=== PATIENT | male | born 1985 | race Two or more races ===

== ENCOUNTER 2017-05-11 19:48 | Emergency (ER) | payer OTHER ==
[~2017-05-11] VITALS: Ht 180.3 cm; Wt 91.6 kg
[~2017-05-11 19:48] MED LIST: ACET325T9 PO
[2017-05-11] MEDS ORDERED: cloNIDine HCL 0.1 MG TABLET ONE (20:12)
[2017-05-11] MEDS ORDERED: cloNIDine HCL 0.1 MG TABLET PO ONE (20:15)
--- NOTE | 2017-05-11 20:49 | RAD ---
CT HEAD WO CONTRAST History: Headache, dizziness, elevated blood pressure Comparison: None. Technique: Noncontrast CT imaging was performed of the head. Exposure: One or more of the following individualized dose reduction techniques were utilized for this examination: 1. Automated exposure control 2. Adjustment of the mA and/or kV according to patient size 3. Use of iterative reconstruction technique. Findings: No acute extra-axial or parenchymal hemorrhage is identified. There is no significant intra-axial mass effect, midline shift, or extra-axial fluid collection. The wilder-white differentiation of the major vascular territories is preserved. The ventricles, sulci, and cisterns are within normal limits in size and configuration. The mastoid air cells and the visualized paranasal sinuses are aerated. No acute calvarial abnormality is identified. Impression: 1. No acute intracranial abnormality is identified. Electronically signed by: Jimi Weinberg MD (05/11/2017 8:46 PM) [facility]
[2017-05-11] MEDS ORDERED: CONTRAST GIVEN MC PRN (21:00)
[2017-05-11] MEDS ORDERED: IOHEXOL 300 MG/ML 75 ML VIAL. IV ONE (21:00)
[2017-05-11 21:10] LABS: BASO % 1 % (0-3); EOS # 0.1 x10^3/uL (0.0-0.7); EOS % 2 % (0-3); HEMATOCRIT 43.1 % (39.0-53.0); HEMOGLOBIN 14.8 g/dL (13.0-17.5); LYMPH % 27 % (24-48); MEAN CORPUSCULAR HEMOGLOBIN 29 pg (25-35); MEAN CORPUSCULAR HGB CONC 34 g/dL (31-37); MEAN CORPUSCULAR VOLUME 83 fL (79-100); MONO # 0.6 x10^3/uL (0.0-1.1); MONO % 8 % (0-9); NEUT # 4.7 x10^3uL (1.8-7.7); NEUT % 62 % (31-73); PLATELET COUNT 198 x10^3/uL (140-400); RED BLOOD COUNT 5.17 x10^6/uL (4.30-5.70); RED CELL DISTRIBUTION WIDTH 13.9 % (11.5-14.5); WHITE BLOOD COUNT 7.5 x10^3/uL (4.0-11.0)
[2017-05-11 21:16] LABS: ALBUMIN 4.1 g/dL (3.4-5.0); ALBUMIN/GLOBULIN RATIO 1.1 (1.0-1.7); CALCIUM 9.2 mg/dL (8.5-10.1); CREATININE 1.4 mg/dL (0.7-1.3); POTASSIUM 3.5 mmol/L (3.5-5.1); TOTAL BILIRUBIN 0.4 mg/dL (0.2-1.0)
[2017-05-11] MEDS ORDERED: hydroCHLOROthiazide 25 MG TABLET PO ONE (21:30)
--- NOTE | 2017-05-11 21:32 | RAD ---
PQRS Compliance Statement: One or more of the following individualized dose reduction techniques were utilized for this examination: 1. Automated exposure control 2. Adjustment of the mA and/or kV according to patient size 3. Use of iterative reconstruction technique CT angiography head with contrast May 11, 2017 INDICATION: Headache. Dizziness. COMPARISON: CT head May 11, 2017 TECHNIQUE: Multiple axial CT images of the head were obtained after the intravenous administration of 75 cc Omnipaque 300. Coronal and sagittal reformats are provided. Maximum intensity projection images of the [place] are provided. FINDINGS: Ventricles, sulci and basal cisterns are within normal limits. There is no hydrocephalus. Mckeon-white matter differentiation is normal. There is no acute intracranial hemorrhage. There is no mass, mass effect or midline shift. Posterior fossa is normal in appearance. No enhancing lesion is identified. Visualized portions of the orbits are normal. Paranasal sinuses are well aerated. Mastoid air cells are well aerated. Scalp and calvaria are normal. Vascular findings: Carotid bifurcations are normal without evidence for stenosis of the proximal internal carotid arteries. Intracranial segments of internal carotid arteries are normal in course and caliber. Middle cerebral arteries are normal in course and caliber. Patent sylvian branches are noted bilaterally. Bilateral A1 segments of anterior cerebral arteries are present. Anterior communicating artery is visualized. Anterior cerebral arteries are normal in course and caliber. Right vertebral artery is dominant. Basilar artery is normal in course and caliber. Bilateral P1 segments of the posterior cerebral arteries are present. Superior cerebellar arteries are normal in course and caliber. Anterior inferior cerebellar arteries are normal. Posterior inferior cerebellar arteries are normal. There is no aneurysm, vascular malformation or high-grade stenosis/large vessel occlusion. IMPRESSION: No acute intracranial hemorrhage. There is no aneurysm, vascular malformation or high-grade stenosis/large vessel occlusion involving [place] of [place]. Electronically signed by: Viri Sol MD (05/11/2017 9:29 PM) [id number]
[2017-05-11] MEDS ORDERED: LOSARTAN 25 MG TABLET. PO ONE (21:45)
[2017-05-11] MEDS ORDERED: VALS1TAB3 PO (22:24)
--- NOTE | 2017-05-11 22:24 | PHYS DOC ---
Past History Past Medical History: Hypertension, Migraines Past Surgical History: No Surgical History Alcohol Use: None Drug Use: None Adult General Chief Complaint Chief Complaint: HYPERTENSION HPI HPI 32-year-old male with a history of chronic noncompliance with hypertension which he has been aware of for more than 6 years, pulse with a history of migraines, now with gradual onset of headache typical for him midday today. Patient denies fevers chills sweats or shaking chills. He has no stiff neck. He was concerned that his blood pressure might be elevated so he went to the clinic and had taken. It was indeed elevated and they referred him to the emergency department for evaluation. Patient denies visual changes, chest pain, shortness breath, or any difficulties with strength sensation or gait. Review of Systems Review of Systems Constitutional: Denies fever or chills [] Eyes: Denies change in visual acuity, redness, or eye pain [] HENT: Denies nasal congestion or sore throat [] Respiratory: Denies cough or shortness of breath [] Cardiovascular: No additional information not addressed in HPI [] GI: Denies abdominal pain, nausea, vomiting, bloody stools or diarrhea [] : Denies dysuria or hematuria [] Musculoskeletal: Denies back pain or joint pain [] Integument: Denies rash or skin lesions [] Neurologic: Denies headache, focal weakness or sensory changes [] Endocrine: Denies polyuria or polydipsia [] All other systems were reviewed and found to be within normal limits, except as documented in this note. Current Medications Current Medications Current Medications Medications (Trade) Dose Ordered Sig/Dung Start Time Stop Time Status Last Admin Dose Admin Clonidine HCl (Catapres) 0.2 mg 1X ONCE 05/11/17 20:15 05/11/17 20:16 DC 05/11/17 20:15 0.2 MG Hydrochlorothiazide (Hydrodiuril) 25 mg 1X ONCE 05/11/17 21:30 05/11/17 21:31 DC 05/11/17 21:34 25 MG Info (Do NOT chart on this entry -- for MONITORING) 1 each PRN DAILY PRN 05/11/17 21:00 05/13/17 20:59 Iohexol (Omnipaque 300 Mg/ml) 75 ml 1X ONCE 05/11/17 21:00 05/11/17 21:01 DC 05/11/17 20:55 75 ML Losartan Potassium (Cozaar) 25 mg ONCE ONCE 05/11/17 21:45 05/11/17 21:46 DC 05/11/17 21:40 25 MG Allergies Allergies Allergies Coded Allergies Type Severity Reaction Last Updated Verified No Known Drug Allergies 01/11/14 No Physical Exam Physical Exam Well-appearing patient perfectly groomed supple neck clear lungs regular rate and rhythm no tachycardia clear lungs with no Rales benign abdomen normal extremities and a nonfocal neurologic exam. Patient has no meningismus whatsoever Constitutional: Well developed, well nourished, no acute distress, non-toxic appearance. [] HENT: Normocephalic, atraumatic, bilateral external ears normal, oropharynx moist, no oral exudates, nose normal. [] Eyes: PERRLA, EOMI, conjunctiva normal, no discharge. [] Neck: Normal range of motion, no tenderness, supple, no stridor. [] Cardiovascular:Heart rate regular rhythm, no murmur [] Lungs & Thorax: Bilateral breath sounds clear to auscultation [] Abdomen: Bowel sounds normal, soft, no tenderness, no masses, no pulsatile masses. [] Skin: Warm, dry, no erythema, no rash. [] Back: No tenderness, no CVA tenderness. [] Extremities: No tenderness, no cyanosis, no clubbing, ROM intact, no edema. [] Neurologic: Alert and oriented X 3, normal motor function, normal sensory function, no focal deficits noted. [] Psychologic: Affect normal, judgement normal, mood normal. [] Current Patient Data Vital Signs Vital Signs Date Time Temp Pulse Resp B/P (MAP) Pulse Ox O2 Delivery O2 Flow Rate FiO2 05/11/17 21:40 80 210/120 05/11/17 21:15 16 Room Air 05/11/17 20:19 97.6 100 Lab Results Laboratory Tests Test 05/11/17 20:45 White Blood Count 7.5 x10^3/uL (4.0-11.0) Red Blood Count 5.17 x10^6/uL (4.30-5.70) Hemoglobin 14.8 g/dL (13.0-17.5) Hematocrit 43.1 % (39.0-53.0) Mean Corpuscular Volume 83 fL (79-100) Mean Corpuscular Hemoglobin 29 pg (25-35) Mean Corpuscular Hemoglobin Concent 34 g/dL (31-37) Red Cell Distribution Width 13.9 % (11.5-14.5) Platelet Count 198 x10^3/uL (140-400) Neutrophils (%) (Auto) 62 % (31-73) Lymphocytes (%) (Auto) 27 % (24-48) Monocytes (%) (Auto) 8 % (0-9) Eosinophils (%) (Auto) 2 % (0-3) Basophils (%) (Auto) 1 % (0-3) Neutrophils # (Auto) 4.7 x10^3uL (1.8-7.7) Lymphocytes # (Auto) 2.0 x10^3/uL (1.0-4.8) Monocytes # (Auto) 0.6 x10^3/uL (0.0-1.1) Eosinophils # (Auto) 0.1 x10^3/uL (0.0-0.7) Basophils # (Auto) 0.0 x10^3/uL (0.0-0.2) Sodium Level 140 mmol/L (136-145) Potassium Level 3.5 mmol/L (3.5-5.1) Chloride Level 103 mmol/L (98-107) Carbon Dioxide Level 28 mmol/L (21-32) Anion Gap 9 (6-14) Blood Urea Nitrogen 11 mg/dL (8-26) Creatinine 1.4 mg/dL (0.7-1.3) H Estimated GFR (Cockcroft-Gault) 58.0 BUN/Creatinine Ratio 8 (6-20) Glucose Level 118 mg/dL (70-99) H Calcium Level 9.2 mg/dL (8.5-10.1) Total Bilirubin 0.4 mg/dL (0.2-1.0) Aspartate Amino Transferase (AST) 17 U/L (15-37) Alanine Aminotransferase (ALT) 27 U/L (16-63) Alkaline Phosphatase 54 U/L (46-116) Troponin I Quantitative < 0.017 ng/mL (0-0.055) Total Protein 8.0 g/dL (6.4-8.2) Albumin 4.1 g/dL (3.4-5.0) Albumin/Globulin Ratio 1.1 (1.0-1.7) EKG EKG [] Radiology/Procedures Radiology/Procedures Chest x-ray normal study no acute disease interpreted by me Course & Med Decision Making Course & Med Decision Making Pertinent Labs and Imaging studies reviewed. (See chart for details) Patient with chronic noncompliance and poorly controlled hypertension. He is comfortable and well-appearing on M.D. evaluation. Patient's headache gradually resolved while in ED. He has nonfocal neurologic exam and no evidence of acute coronary syndrome. Troponin negative. Patient has mild renal insufficiency with creatinine 1.4. Patient stable and well-appearing on multiple reevaluation. Blood pressure improved to 176/108. No evidence of acute end organ injury. Headache resolved on reevaluation prior to discharge. Prescription for valsartan hydrochlorothiazide dispensed. Patient were critical importance of compliance with this medication regimen and close follow-up with his primary care doctor for reevaluation and to determine efficacy and make medication and dose adjustments as needed. No further workup or treatment indicated at this time patient agrees with outpatient follow-up and strict return precautions given [] Dragon Disclaimer Dragon Disclaimer This electronic medical record was generated, in whole or in part, using a voice recognition dictation system. Departure Departure: Impression: Primary Impression: Hypertension Additional Impressions: Noncompliance with medication regimen Mild renal insufficiency Disposition: 01 HOME, SELF-CARE Condition: IMPROVED Referrals: PCPVANGIE (PCP) Patient Instructions: Chronic Renal Insufficiency, Hypertension Additional Instructions: As you been aware for 6 years you have high blood pressure which requires medication. Since you have not taken medication during that time, your blood pressure has been uncontrolled. It appears that uncontrolled hypertension caused you to experience a headache today. The CAT scan of your head shows no signs of an emergency as a result in your symptoms are now resolved after treatment. Your labs reflect mild renal insufficiency which means less than perfect kidney function. This is a common result of poorly controlled chronic hypertension. It's critically important that you take the prescription that you' ve been given to control your blood pressure. Failure to do so will result in long-term changes including but not limited to diagnoses such as atherosclerosis , chronic kidney failure, congestive heart failure, heart attack or stroke. All of these can result in premature or permanent disability. Take this medication as prescribed and follow-up with your doctor tomorrow for recheck. Keep record of your blood pressure once a day to report back to your doctor in order to address medication changes or dose adjustment as needed for optimal control. Return immediately for new severe worsening symptoms Scripts Valsartan/Hydrochlorothiazide (DIOVAN HCT 80-12.5 MG TABLET) 1 Each Tablet 1 TAB PO DAILY, #30 TAB 5 Refills Prov: ANDREA VELAZCO MD 05/11/17 Problem Qualifiers ANDREA VELAZCO MD May 11, 2017 22:24
[2017-05-11 22:30] VITALS: BP 176/108
--- NOTE | 2017-05-12 08:20 | RAD ---
Portable chest, 05/11/2017: History: Hypertension The heart size and pulmonary vascularity are normal. The lungs are clear. There is no evidence of pleural fluid. IMPRESSION: No acute cardiopulmonary abnormality is detected.
== END 2017-05-11 22:34 | disposition home or self-care (01) ==
LOC: ER 19:48
DX: I10 Essential (primary) hypertension (principal); N28.9 Disorder of kidney and ureter, unspecified; Z91.14 Patient's other noncompliance with medication regimen; G43.909 Migraine, unspecified, not intractable, without status migrainosus
CPT/HCPCS: 36415; 70450; 70496; 71045; 80053; 84484; 85025; 99285; Q9967

== ENCOUNTER 2018-07-28 12:25 | Inpatient (IN) | payer OTHER ==
[~2018-07-28] VITALS: Ht 180.3 cm; Wt 93.2 kg
[2018-07-28] VITALS (12 sets, daily range): BP systolic 134–217; BP diastolic 75–137
[~2018-07-28 12:25] MED LIST changes: +VALS1TAB3 PO
--- NOTE | 2018-07-28 12:55 | NUR ---
Admit to room icu bed 6 via ambulation from physicians office. Alert and oriented, no c/o pain. Blood pressure 217/137, heart rate 86, afebrile. Started saline lock, 20 gauge, to left forearm with rainbow blood draw. Urine also obtained. Pt said he had a headache yesterday but today feels fine. Oriented to room and explained all procedures.
[2018-07-28] MEDS ORDERED: METOPROLOL TARTRATE 5 MG/5 ML VIAL. IV ONE (14:00)
[2018-07-28 14:12] LABS: BASO % 1 % (0-3); EOS # 0.2 x10^3/uL (0.0-0.7); EOS % 4 % (0-3); HEMATOCRIT 43.7 % (39.0-53.0); HEMOGLOBIN 14.8 g/dL (13.0-17.5); LYMPH # 1.8 x10^3/uL (1.0-4.8); LYMPH % 31 % (24-48); MEAN CORPUSCULAR HEMOGLOBIN 28 pg (25-35); MEAN CORPUSCULAR HGB CONC 34 g/dL (31-37); MEAN CORPUSCULAR VOLUME 83 fL (79-100); MONO # 0.4 x10^3/uL (0.0-1.1); MONO % 7 % (0-9); NEUT # 3.4 x10^3uL (1.8-7.7); NEUT % 58 % (31-73); PLATELET COUNT 199 x10^3/uL (140-400); RED BLOOD COUNT 5.27 x10^6/uL (4.30-5.70); WHITE BLOOD COUNT 5.9 x10^3/uL (4.0-11.0)
[2018-07-28 14:22] LABS: ALBUMIN 3.9 g/dL (3.4-5.0); ALBUMIN/GLOBULIN RATIO 1.1 (1.0-1.7); CREATININE 1.5 mg/dL (0.7-1.3); GFR 53.3; POTASSIUM 3.5 mmol/L (3.5-5.1); TOTAL BILIRUBIN 0.5 mg/dL (0.2-1.0); TOTAL PROTEIN 7.4 g/dL (6.4-8.2)
[2018-07-28 14:23] LABS: BILIRUBIN,URINE NEG (NEG); CLARITY,URINE CLEAR; COLOR,URINE YELLOW; GLUCOSE,URINE NEG (NEG); NITRITE,URINE NEG (NEG); UROBILINOGEN,URINE 0.2 mg/dL (0.2 mg/dL)
[2018-07-28 14:24] LABS: BACTERIA,URINE 0 /HPF (0-FEW); RBC,URINE RARE /HPF (0-2); SQUAMOUS EPITHELIAL CELL,UR OCC /LPF; WBC,URINE RARE /HPF (0-4)
[2018-07-28] MEDS: ACETAMINOPHEN 325 MG TABLET PO PRN ×2 (17:12→22:10)
[2018-07-29] VITALS (27 sets, daily range): BP systolic 119–173; BP diastolic 78–122
--- NOTE | 2018-07-29 05:31 | EKG ---
[address] [address] Test Date: 2018-07-28 Test Time: 19:49:26 Pat Name: MELANIE DAWSON Department: Room: [facility]06 1 Gender: M Predictive Maintenance Specialist: : [id number] Requested By: AISHA PORTILLO Order Number: [id number] Reading MD: Measurements Intervals [place] Rate: 88 P: 34 NM: 160 QRS: 27 QRSD: 110 T: -31 QT: 380 QTc: 463 Interpretive Statements SINUS RHYTHM T ABNORMALITY IN INFEROLATERAL LEADS ABNORMAL ECG RI6.02 No previous ECG available for comparison
[2018-07-29] MEDS: hydroCHLOROthiazide 12.5 MG CAPSULE PO SCH (08:44)
[2018-07-29] MEDS ORDERED: LOSARTAN 50 MG TABLET. PO SCH (09:00)
[2018-07-29] MEDS ORDERED: METOPROLOL SUCC 24HR ER 50 MG TAB.ER.24H. PO SCH (13:15)
[2018-07-29] MEDS: LOSARTAN 50 MG TABLET. PO SCH (13:33)
[2018-07-29 14:05] LABS: THYROID STIM HORMONE (TSH) 1.956 uIU/mL (0.358-3.740)
[2018-07-29] MEDS ORDERED: FUROSEMIDE 20 MG/2 ML VIAL IVP ONE (16:00)
[2018-07-29] MEDS ORDERED: NITROGLYCERIN 0.2MG/HR PATCH. TD SCH (17:30)
[2018-07-30] VITALS (14 sets, daily range): BP systolic 123–162; BP diastolic 83–116
--- NOTE | 2018-07-30 08:00 | PDOC2 ---
CARDIAC CONSULT DATE OF CONSULT Date Of Consult DATE: 07/30/18 TIME: 07:58 REASON FOR CONSULT Reason for Consult Hypertension REFERRING PHYSICIAN Referring Physician Dr. Dale SOURCE Source: Chart review, Patient HPI History of Present Illness This is a 33 yo male, with a history of hypertension, who presented secondary to elevated blood pressure. Patient had ran out of his medications about a month prior. Was a PCP office for routine visit so he could get medications refilled. Blood pressure noted to be significantly elevated and was referred to the hospital. Cardene gtt was initiated. Blood pressure now better controlled. No h/o CAD. Patient reports an enlarged heart at age 13. PAST MEDICAL HISTORY Cardiovascular: HTN PAST SURGICAL HISTORY Past Surgical History: No pertinent history FAMILY HISTORY Family History: Other (no pertinent for mother's side. Does not know father) SOCIAL HISTORY Smoke: No ALCOHOL: none Drugs: None Lives: Alone CURRENT MEDICATIONS Current Medications Current Medications Acetaminophen (Tylenol) 650 mg PRN QID PRN PO PAIN Last administered on 07/28/18 22:10; Start 07/28/18 at 13:30 Losartan Potassium (Cozaar) 50 mg DAILY PO Last administered on 07/29/18at 08:44; Start 07/29/18 at 09:00; Stop 07/29/18 at 13:12; Status DC Hydrochlorothiazide (Microzide) 12.5 mg DAILY PO Last administered on 07/29/18 08:44; Start 07/29/18 at 09:00 Nicardipine HCl 50 mg/Sodium Chloride 270 ml @ 27 mls/hr CONT PRN IV SEE I/O RECORD Last administered on 07/28/18at 22:07; Start 07/28/18 at 13:45 Metoprolol Tartrate (Lopressor Vial) 5 mg 1X ONCE IV Last administered on 07/28/18 14:03; Start 07/28/18 at 14:00; Stop 07/28/18 at 14:02; Status DC Losartan Potassium (Cozaar) 100 mg DAILY PO Last administered on 07/29/18 13:33; Start 07/29/18 at 13:30 Metoprolol Succinate (Toprol Xl) 100 mg DAILY PO Last administered on 07/29/18at 13:32; Start 07/29/18 at 13:15 Nifedipine (Procardia Xl) 30 mg DAILY PO Last administered on 07/29/18at 13:34; Start 07/29/18 at 13:30 Furosemide (Lasix) 20 mg 1X ONCE IVP Last administered on 07/29/18at 16:09; Start 07/29/18 at 16:00; Stop 07/29/18 at 16:05; Status DC Nifedipine (Procardia Xl) 30 mg 1X ONCE PO Last administered on 07/29/18at 16:15; Start 07/29/18 at 16:00; Stop 07/29/18 at 16:05; Status DC Nitroglycerin (Nitro-Dur 0.2mg) 1 patch DAILY TD Last administered on 07/29/18at 17:47; Start 07/29/18 at 17:30 Active Scripts Active Diovan Hct 80-12.5 Mg Tablet (Valsartan/Hydrochlorothiazide) 1 Each Tablet 1 Tab PO DAILY Reported Tylenol (Acetaminophen) 325 Mg Tablet 650 Mg PO PRN ALLERGIES Allergies: Coded Allergies: No Known Drug Allergies (Unverified , 01/11/14) ROS Review of Systems 14 point ROS conducted with pertinent positives noted above in HPI PHYSICAL EXAM General: Alert, Oriented X3, Cooperative, No acute distress HEENT: Atraumatic Lungs: Clear to auscultation, Normal air movement Heart: Regular rate, Normal S1, Normal S2 Abdomen: Soft, No hepatospenomegaly Extremities: No edema, Normal pulses Skin: No rashes, No breakdown Neuro: Normal speech, Sensation intact Psych/Mental Status: Mental status NL, Mood NL MUSCULOSKELETAL: No deformity VITALS Vital Signs Vital Signs Date Time Temp Pulse Resp B/P (MAP) Pulse Ox O2 Delivery O2 Flow Rate FiO2 07/30/18 06:12 97.6 71 20 98 Room Air 07/30/18 05:59 138/94 (109) LABS LABS Laboratory Tests Test 07/28/18 13:45 07/28/18 15:20 White Blood Count 5.9 x10^3/uL (4.0-11.0) Red Blood Count 5.27 x10^6/uL (4.30-5.70) Hemoglobin 14.8 g/dL (13.0-17.5) Hematocrit 43.7 % (39.0-53.0) Mean Corpuscular Volume 83 fL (79-100) Mean Corpuscular Hemoglobin 28 pg (25-35) Mean Corpuscular Hemoglobin Concent 34 g/dL (31-37) Red Cell Distribution Width 15.0 % (11.5-14.5) Platelet Count 199 x10^3/uL (140-400) Neutrophils (%) (Auto) 58 % (31-73) Lymphocytes (%) (Auto) 31 % (24-48) Monocytes (%) (Auto) 7 % (0-9) Eosinophils (%) (Auto) 4 % (0-3) Basophils (%) (Auto) 1 % (0-3) Neutrophils # (Auto) 3.4 x10^3uL (1.8-7.7) Lymphocytes # (Auto) 1.8 x10^3/uL (1.0-4.8) Monocytes # (Auto) 0.4 x10^3/uL (0.0-1.1) Eosinophils # (Auto) 0.2 x10^3/uL (0.0-0.7) Basophils # (Auto) 0.0 x10^3/uL (0.0-0.2) Urine Collection Type Unknown Urine Color Yellow Urine Clarity Clear Urine pH 5.5 Urine Specific [place] 1.015 Urine Protein 30 mg/dl (NEG-TRACE) Urine Glucose (UA) Neg mg/dL (NEG) Urine Ketones (Stick) Neg mg/dL (NEG) Urine Blood Trace (NEG) Urine Nitrite Neg (NEG) Urine Bilirubin Neg (NEG) Urine Urobilinogen Dipstick 0.2 mg/dL (0.2 mg/dL) Urine Leukocyte Esterase Neg (NEG) Urine RBC Rare /HPF (0-2) Urine WBC Rare /HPF (0-4) Urine Squamous Epithelial Cells Occ /LPF Urine Bacteria 0 /HPF (0-FEW) Sodium Level 141 mmol/L (136-145) Potassium Level 3.5 mmol/L (3.5-5.1) Chloride Level 107 mmol/L (98-107) Carbon Dioxide Level 26 mmol/L (21-32) Anion Gap 8 (6-14) Blood Urea Nitrogen 16 mg/dL (8-26) Creatinine 1.5 mg/dL (0.7-1.3) Estimated GFR (Cockcroft-Gault) 53.3 BUN/Creatinine Ratio 11 (6-20) Glucose Level 133 mg/dL (70-99) Calcium Level 9.0 mg/dL (8.5-10.1) Total Bilirubin 0.5 mg/dL (0.2-1.0) Aspartate Amino Transf (AST/SGOT) 20 U/L (15-37) Alanine Aminotransferase (ALT/SGPT) 39 U/L (16-63) Alkaline Phosphatase 56 U/L (46-116) Creatine Kinase 143 U/L (39-308) Troponin I Quantitative < 0.017 ng/mL (0-0.055) FW-Ljb-N-Type Natriuretic Peptide 219 pg/mL (0-124) Total Protein 7.4 g/dL (6.4-8.2) Albumin 3.9 g/dL (3.4-5.0) Albumin/Globulin Ratio 1.1 (1.0-1.7) Triglycerides Level 144 mg/dL (0-150) Cholesterol Level 173 mg/dL (0-200) LDL Cholesterol, Calculated 109 mg/dL (0-100) VLDL Cholesterol, Calculated 28 mg/dL (0-40) Non-HDL Cholesterol Calculated 137 mg/dL (0-129) HDL Cholesterol 36 mg/dL (40-60) Cholesterol/HDL Ratio 4.0 Thyroid Stimulating Hormone (TSH) 1.956 uIU/mL (0.358-3.740) Nasal Screen MRSA (PCR) Negative (Negative) ASSESSMENT/PLAN Assessment/Plan 1. Malignant hypertension. Off Cardene gtt. 2. Hyperlipemia 3. ? CKD Recommendations Echo and renal US ordered Convert metoprolol to coreg for better BP control Losartan increased this am D/c nitro paste Increase activities Monitor BP; titrate therapy as warranted hydralazine IV PRN Further pending above ANTHONY ESCALERA APRN Jul 30, 2018 08:00
--- NOTE | 2018-07-30 08:07 | NUR ---
NURSING NOTE CONSULT CARDIOLOGY DR PORTILLO SPOKE WITH MARINA CRUZ AND ASKED HER TO SEE PT. PT SEEN BY CARDIOLOGY THIS AM. VALENTINA RIVERA.
[2018-07-30] MEDS: LOSARTAN 50 MG TABLET. PO SCH (08:22)
[2018-07-30] MEDS: hydroCHLOROthiazide 12.5 MG CAPSULE PO SCH (08:23)
[2018-07-30] MEDS ORDERED: CARVEDILOL 12.5 MG TABLET PO SCH (08:30)
--- NOTE | 2018-07-30 09:55 | NUR ---
NURSING NOTE WALKING PT CARDIOLOGY WANTED PT UP AND MOVING TODAY AFTER BREAKFAST. TOOK PTS BLOOD PRESSURE PRIOR TO WALKING 155/104 PULSE 80 POST WALK X 5 MIN REST IN CHAIR 149/110 PULSE 82 PT STATES HE HAS NO SYMPTOMS, NO HEADACHE TODAY, AND STATES HE IS VERY ACTIVE AT HOME WITH HIS CHILDREN. WAITING FOR ECHO. VALENTINA RIVERA.
--- NOTE | 2018-07-30 13:17 | RAD ---
Renal ultrasound 07/29/2018 CLINICAL HISTORY: Hypertension. TECHNIQUE: A real-time ultrasound examination of both kidneys and the urinary bladder was performed. Multiple images were obtained. FINDINGS: Both kidneys are within normal limits in size and echogenicity. The right kidney measures 11.5 cm in length. The left kidney measures 10.8 cm in length. No focal abnormality of either kidney is seen. There is no evidence of hydronephrosis. The urinary bladder is distended with urine. No abnormality is seen. Note is made of increased echogenicity of the liver parenchyma consistent with fatty infiltration. IMPRESSION: 1. Normal renal ultrasound. 2. Fatty infiltration of the liver. Electronically signed by: Quirino Romeo MD (07/30/2018 1:14 PM) [id number]
[2018-07-30] MEDS ORDERED: CARV12.5 PO (14:52)
--- NOTE | 2018-07-30 15:11 | NUR ---
NURSING NOTE DISCHARGE PER [facility], PT DISCHARGED HOME SELF CARE AT 1510 VIA AMBULATION ACCOMPANIED BY SELF. PT STATES HE DROVE HIMSELF HERE AND HAS A CAR. WRITTEN AND VERBAL DISCHARGE INSTRUCTIONS GIVEN TO PT. WRITTEN SCRIPTS GIVEN TO PT. PT INSTRUCTED TO CALL FOR FOLLOW UP WITH CARDIOLOGY AND DR PORTILLO OFFICE. NO COMPLICATIONS. VALENTINA RIVERA.
[2018-07-30] MEDS ORDERED: LOSA100T14 PO (15:16)
[2018-07-30] MEDS ORDERED: NIFE30TA2 PO (15:16)
[2018-07-30] MEDS ORDERED: HYDR12.572 PO (15:17)
--- NOTE | 2018-07-30 16:26 | CARD ---
MR#: [id number] Date of Study: 07/30/2018 Ordering Physician: AISHA PORTILLO, Referring Physician: AISHA PORTILLO, Tech: Jerri Grewal DIONTE APPROVED REPORT EXAM: Two-dimensional and M-mode echocardiogram with Doppler and color Doppler. Other Information Quality : Good Rhythm : LBBB INDICATION Cardiomegaly 2D DIMENSIONS RVDd2.4 (2.9-3.5cm)Left Atrium(2D)3.9 (1.6-4.0cm) IVSd1.0 (0.7-1.1cm)Aortic Root(2D)3.4 (2.0-3.7cm) LVDd5.6 (3.9-5.9cm)LVOT Diameter2.2 (1.8-2.4cm) PWd1.1 (0.7-1.1cm)LVDs4.5 (2.5-4.0cm) FS (%) 19.8 %SV62.6 ml Aortic Valve AoV Peak Victorino.116.7cm/sAoV VTI18.1cm AO Peak GR.5.4mmHgAO Mean GR.3mmHg HARJEET (VTI)2.65pf4YW P 1/2 [id number] Mitral Valve MV E Aukhizkl86.1cm/sMV DECEL [id number] MV A Doikyqja30.1cm/sE/A Ratio0.9 Tricuspid Valve TR P. Szjmyzeg052jv/sRAP [id number] TR Peak Gr.52cfJuKWYI80kkHs LEFT VENTRICLE The left ventricle is at the upper limit of normal. There is normal left ventricular wall thickness. Left ventricle systolic function is mildly impaired. The Ejection Fraction is estimated at 40%. There is mild global hypokinesis of the left ventricle. Transmitral Doppler flow pattern is Grade II-pseud onormal filling dynamics. RIGHT VENTRICLE The right ventricle is normal size. The right ventricular systolic function is normal. ATRIA The left atrium size is normal. The right atrium size is normal. The interatrial septum is intact wit h no evidence for an atrial septal defect or patent foramen ovale as noted on 2-D or Doppler imaging. AORTIC VALVE The aortic valve is normal in structure and function. Doppler and Color Flow revealed trace aortic re gurgitation. There is no significant aortic valvular stenosis. MITRAL VALVE The mitral valve is normal in structure and function. There is no evidence of mitral valve prolapse. There is no mitral valve stenosis. Doppler and Color Flow revealed no mitral valve regurgitation note d. TRICUSPID VALVE The tricuspid valve is normal in structure and function. Doppler and Color Flow revealed trace tricus pid regurgitation. The PA pressure was estimated at 23 mmHg. There is no tricuspid valve stenosis. PULMONIC VALVE The pulmonary valve is normal in structure and function. Doppler and Color Flow revealed mild pulmoni c valvular regurgitation. There is no pulmonic valvular stenosis. GREAT VESSELS The aortic root is normal in size. The ascending aorta is mildly dilated at 3.6 cm. The IVC is normal in size and collapses >50% with inspiration. PERICARDIAL EFFUSION There is no evidence of significant pericardial effusion. Critical Notification Critical Value: No <Conclusion> The left ventricle is at the upper limit of normal. Left ventricle systolic function is mildly impaired. The Ejection Fraction is estimated at 40%. There is mild global hypokinesis of the left ventricle. There is no significant aortic valvular stenosis. Doppler and Color Flow revealed trace aortic regurgitation. Doppler and Color Flow revealed no mitral valve regurgitation noted. Doppler and Color Flow revealed trace tricuspid regurgitation. The PA pressure was estimated at 23 mmHg. The ascending aorta is mildly dilated at 3.6 cm. Signed by : Isai Duque MD Electronically Approved : 07/30/2018 16:25:32
--- NOTE | 2018-07-31 02:26 | PN ---
DATE: 07/30/2018 SUBJECTIVE: The patient is a 33-year-old male in the ICU for hypertensive urgency. The patient was having headache. We adjusted some of his medications this morning. His blood pressure is better than it was, but still high on the diastolic. OBJECTIVE: VITAL SIGNS: Blood pressure 150/108, respiratory rate 16, pulse 80, afebrile. GENERAL: The patient is alert and oriented. LUNGS: Diminished, but clear. CARDIOVASCULAR: Regular sinus rhythm. ____ reviewed by Cardiology and then hopefully ready for discharge. IMPRESSION: Hypertensive urgency, dyspnea. AISHA PORTILLO MD DR: HALI/noe JOB#: [id number] / [id number]
--- NOTE | 2018-07-31 14:34 | DS ---
DATE OF DISCHARGE: 07/30/2018 HOSPITAL COURSE: A 33-year-old gentleman came in with hypertensive urgency. The patient required IV nicardipine as well as adjusting multiple medications for him to keep his blood pressure in a reasonable range. It had been over 220/115 originally and we got it down. One time, it was as high as 217/137. The patient otherwise made good progress. He had been without his medications and consequently required to be admitted as his blood pressure was so high as well as hypertensive emergency. The patient's labs were basically stable, did have a slightly elevated BNP; LDL was 109; HDL was 36, low; thyroid was good. His hematological studies were good. UA was good, but did show some mild protein in the urine itself. MRSA negative. We had an ultrasound of the kidneys, which was negative. We had an echocardiogram read out by Dr. Soto, showed an ejection fraction of only 40% with mild global hypokinesis of the left ventricle, apparently had a grade 2 pseudonormal filling dynamics, enlarged left ventricle, global hypokinesis of the left ventricle. Otherwise, the patient made good progress. He was seen by Cardiology here and as a result, the patient was stabilized. He was discharged home and made sure he had his medications, apparently has had hypertension since the age of 13. In any case, the patient made good progress. He was placed on a heart-healthy diet and his last blood pressures were approximately 150/95 with a respiratory rate 18, pulse 76, afebrile. IMPRESSION: Hypertensive emergency, hypercholesterolemia, proteinuria. The patient will be discharged home. Follow up as an outpatient and make further evaluation on him as indicated. He should follow up in 7-10 days or sooner as needed. AISHA PORTILLO MD DR: HALI/noe JOB#: [id number] / [id number]
== END 2018-07-30 15:10 | disposition home or self-care (01) | DRG 305 ==
LOC: NUR 12:25 → UNDOADMIN 12:25 → ICU 12:25
PROVIDERS: ADMIT Family Medicine; ATTEND Family Medicine
DX: I16.1 Hypertensive emergency (principal); I16.0 Hypertensive urgency; I10 Essential (primary) hypertension; E78.00 Pure hypercholesterolemia, unspecified; E78.5 Hyperlipidemia, unspecified; I13.10 Hypertensive heart and chronic kidney disease without heart failure, with stage 1 through stage 4 chronic kidney disease, or unspecified chronic kidney disease; N18.9 Chronic kidney disease, unspecified
CPT/HCPCS: 36415; 76770; 80053; 80061; 81001; 82550; 83880; 84443; 84484; 85025; 87641; 93306; 96374; J3490; J7050; 99285-25

== ENCOUNTER → 2018-10-23 | Outpatient (CLI) | payer OTHER ==
[2018-07-30 14:13] VITALS: BP 154/95
[~2018-10-23] MED LIST changes: +CARV12.5 PO; +HYDR12.572 PO; +LOSA100T14 PO; +NIFE30TA2 PO
--- NOTE | 2018-10-23 18:15 | CARD ---
MR#: [id number] Date of Study: 10/23/2018 Ordering Physician: EMY SAHA, Referring Physician: EMY SAHA, Tech: Gillian Espinosa APPROVED REPORT EXAM: Two-dimensional and M-mode echocardiogram with Doppler and color Doppler. Other Information Quality : AverageHR: 70bpm INDICATION Cardiomyopathy RISK FACTORS Hypertension 2D DIMENSIONS RVDd2.7 (2.9-3.5cm)Left Atrium(2D)3.3 (1.6-4.0cm) IVSd1.4 (0.7-1.1cm)Aortic Root(2D)3.9 (2.0-3.7cm) LVDd5.6 (3.9-5.9cm)LVOT Diameter2.1 (1.8-2.4cm) PWd0.9 (0.7-1.1cm)LVDs4.0 (2.5-4.0cm) FS (%) 27.6 %SV80.6 ml LVEF(%)53.0 (>50%) Aortic Valve AoV Peak Victorino.134.6cm/sAoV VTI24.0cm AO Peak GR.7.2mmHgLVOT Peak Victorino.76.0cm/s LVOT VTI 13.85cmAO Mean GR.4mmHg HARJEET (VMAX)2.77ta2IFS (VTI)2.05cm2 AI P 1/2 [id number] Mitral Valve MV E Emjvpihm58.0cm/sMV DECEL [id number] MV A Nrifvhbx23.3cm/sE/A Ratio1.3 Pulmonary Valve PV Peak Rrgjzsdi31.0cm/sPV Peak Grad.2mmHg Tricuspid Valve TR P. Arriviec765hn/sRAP EQOOIXSC4ryBp TR Peak Gr.75aqDcSSUB09ciOc Pulmonary Vein S1 Pgwwarpr17.5cm/sD2 Vjoeinkb69.9cm/s LEFT VENTRICLE The left ventricle is normal size. There is mild to moderate concentric left ventricular hypertrophy. The left ventricular systolic function is mildly decreased. EF 45% There is slight global hypokinesi s of the left ventricle. Transmitral Doppler flow pattern is Grade II-pseudonormal filling dynamics. RIGHT VENTRICLE The right ventricle is normal size. There is normal right ventricular wall thickness. The right ventr icular systolic function is normal. ATRIA The left atrium size is normal. The right atrium size is normal. The interatrial septum is intact wit h no evidence for an atrial septal defect or patent foramen ovale as noted on 2-D or Doppler imaging. AORTIC VALVE The aortic valve is normal in structure and function. Doppler and Color Flow revealed trace aortic re gurgitation. There is no significant aortic valvular stenosis. MITRAL VALVE The mitral valve is normal in structure and function. There is no evidence of mitral valve prolapse. There is no mitral valve stenosis. Doppler and Color-flow revealed trace mitral regurgitation. TRICUSPID VALVE The tricuspid valve is normal in structure and function. Doppler and Color Flow revealed trace tricus pid regurgitation with an estimated PAP of 25 mmHg. There is no tricuspid valve prolapse or vegetatio n. There is no tricuspid valve stenosis. PULMONIC VALVE Doppler and Color Flow revealed trace pulmonic valvular regurgitation. There is no pulmonic valvular stenosis. GREAT VESSELS The aortic root is mildly enlarged. The ascending aorta is normal in size. The IVC is normal in size and collapses >50% with inspiration. PERICARDIAL EFFUSION There is no evidence of significant pericardial effusion. Critical Notification Critical Value: No <Conclusion> The left ventricular systolic function is mildly decreased. EF 45% There is slight global hypokinesis of the left ventricle. Signed by : Emy Saha, Electronically Approved : 10/23/2018 18:15:04
--- NOTE | 2018-10-23 18:24 | RAD ---
MR#: [id number] Date of Study: 10/23/2018 Ordering Physician: EMY SAHA, Referring Physician: EMY SAHA, Tech: Danielle Ramsay RVT, [facility] APPROVED REPORT Patient Location: OUT-PATIENT Indications Uncontrolled HTN CKD Risk Factors Technically limited grayscale images of the bilateral kidneys due to body habitus. Spectral waveforms of the proximal, mid and distal renal arteries bilaterally reveal only moderate el evation velocities in the left proximal renal artery but otherwise no significant velocity accelerati on is identified. Overall there is normal renal to aortic ratios. Normal resistive indices are noted. The bilateral kidneys demonstrate cortical hypertrophy on wilder scale images. The aorta is mildly dilated in the proximal segment at 3.4 cm. Renal Artery Doppler Right Renal Artery Left Renal Arter y Proximal 107.3/45.4 cm/secProximal 197.2/100.2 cm/se c Mid 68.2/37.7 cm/secMid 60.0/29.1 cm/sec Distal 67.6/31.0 cm/secDistal 74.5/38.2 cm/sec Renal/Aorta Ratio 1.60Renal/Aorta Ratio 2.90 Aortic Duplex A/PTransverseLongitudinal Proximal Aorta 3.4cm Mid Aorta 2.5cm Distal Aorta 2.0cm Aortic Doppler VelocityWaveform Proximal Aorta 92.0 cm/sec Aorta Mid. 69.0 cm/sec Distal Aorta 72 cm/sec Critical Notification Critical Value: No <Conclusion> 1. No significant renal artery stenosis 2. Mild abdominal aortic aneurysm measuring 3.3 cm on ultrasound imaging. Signed by : Emy Saha, Electronically Approved : 10/23/2018 18:24:05
== END | disposition home or self-care (01) ==
LOC: US 13:58
PROVIDERS: ATTEND Internal Medicine Cardiovascular Disease
DX: I13.10 Hypertensive heart and chronic kidney disease without heart failure, with stage 1 through stage 4 chronic kidney disease, or unspecified chronic kidney disease (principal); I77.89 Other specified disorders of arteries and arterioles; I71.4 Abdominal aortic aneurysm, without rupture; N28.81 Hypertrophy of kidney; N18.9 Chronic kidney disease, unspecified; I42.9 Cardiomyopathy, unspecified
CPT/HCPCS: 93306; 93975

== ENCOUNTER → 2019-07-24 | Outpatient (CLI) | payer OTHER ==
[2018-07-30 14:13] VITALS: BP 154/95
[2019-07-24 16:45] LABS: BASO # 0.1 x10^3/uL (0.0-0.2); BASO % 1 % (0-3); EOS # 0.2 x10^3/uL (0.0-0.7); EOS % 3 % (0-3); HEMATOCRIT 44.8 % (39.0-53.0); HEMOGLOBIN 15.1 g/dL (13.0-17.5); LYMPH # 2.3 x10^3/uL (1.0-4.8); LYMPH % 32 % (24-48); MEAN CORPUSCULAR HEMOGLOBIN 29 pg (25-35); MEAN CORPUSCULAR HGB CONC 34 g/dL (31-37); MEAN CORPUSCULAR VOLUME 85 fL (79-100); MONO # 0.5 x10^3/uL (0.0-1.1); MONO % 6 % (0-9); NEUT # 4.2 x10^3uL (1.8-7.7); NEUT % 58 % (31-73); PLATELET COUNT 223 x10^3/uL (140-400); RED BLOOD COUNT 5.25 x10^6/uL (4.30-5.70); RED CELL DISTRIBUTION WIDTH 13.9 % (11.5-14.5); WHITE BLOOD COUNT 7.3 x10^3/uL (4.0-11.0)
[2019-07-24 17:10] LABS: ALBUMIN 4.2 g/dL (3.4-5.0); CALCIUM 9.1 mg/dL (8.5-10.1); CREATININE 1.7 mg/dL (0.7-1.3); GFR 45.8; POTASSIUM 4.1 mmol/L (3.5-5.1); TOTAL BILIRUBIN 0.4 mg/dL (0.2-1.0); TOTAL PROTEIN 8.3 g/dL (6.4-8.2)
== END ==
LOC: LAB 16:05
PROVIDERS: ATTEND Family Medicine
DX: I16.0 Hypertensive urgency (principal)
CPT/HCPCS: 36415; 80053; 80061; 82553; 84484; 85025

== ENCOUNTER 2020-03-13 09:36 | Emergency (ER) | payer OTHER ==
[~2020-03-13] VITALS: Ht 180.3 cm; Wt 100.0 kg
[2020-03-13] MEDS ORDERED: IV NORMAL SALINE 1,000ML 1,000 ML IV SCH (10:00)
--- NOTE | 2020-03-13 10:00 | PHYS DOC ---
Past History Past Medical History: Hypertension, Migraines Past Surgical History: No Surgical History Alcohol Use: None Drug Use: None General Adult EDM: Chief Complaint: HYPERTENSION HPI: HPI: 34-year-old male with a history of high blood pressure who recently was diagnosed with Covid who was sent here from an urgent care after being found to be hypertensive. At the urgent care the patient's blood pressure was 170/125. He denies any symptoms. He has chronic high blood pressure and takes 3 medications for it. He denies nausea vomiting chest pain abdominal pain or flank pain. He has a cough. Review of systems negative for nuchal rigidity chest pain vomiting or any new rashes. All other review of systems negative. ED course: 34-year-old male presenting with hypertension. Diastolic blood pressure elevated on arrival. Patient was given IV labetalol which brought it down into a more reasonable range. Patient is asymptomatic otherwise. Blood work unremarkable. Chronic kidney disease present similar to baseline. Will discharge to follow-up with PCP in 1 to 2 days. Sewj-cl-ejkl discharge instructions and return precautions given. Current Medications: Current Meds: Current Medications Medications (Trade) Dose Ordered Sig/Dung Start Time Stop Time Status Last Admin Dose Admin Sodium Chloride 1,000 ml @ 1,000 mls/hr Q1H 03/13/20 10:00 03/13/20 09:59 DC Allergies: Allergies: Allergies Coded Allergies Type Severity Reaction Last Updated Verified No Known Drug Allergies 01/11/14 No Physical Exam: PE: Constitutional: Well developed, well nourished, no acute distress, non-toxic appearance. HENT: Normocephalic, atraumatic, bilateral external ears normal, oropharynx moist, no oral exudates, nose normal. [] Eyes: PERRLA, EOMI, conjunctiva normal, no discharge. Neck: Normal range of motion, no tenderness, supple, no stridor. [] Cardiovascular:Heart rate regular rhythm, no murmur Lungs & Thorax: Bilateral breath sounds clear to auscultation [] Abdomen: Bowel sounds normal, soft, no tenderness, no masses, no pulsatile mas ses. Skin: Warm, dry, no erythema, no rash. [] Back: No tenderness, no CVA tenderness. [] Extremities: No tenderness, no cyanosis, no clubbing, ROM intact, no edema. [] Neurologic: Mental status: Awake oriented and alert x3 Cranial nerves: Extraocular movements intact, eyebrows bassam bilaterally, smile symmetric, uvula elevation nl, shoulder shrug intact bilaterally, tongue protrusion normal Sensation: equal and normal in all extremities Strength: 5/5 in upper and lower extremities bilaterally Psychologic: Affect normal, judgement normal, mood normal. [] EKG: EKG: [] Radiology/Procedures: Radiology/Procedures: [] Heart Score: Risk Factors: Risk Factors: DM, Current or recent (<one month) smoker, HTN, HLP, family history of CAD, obesity. Risk Scores: Score 0 - 3: 2.5% MACE over next 6 weeks - Discharge Home Score 4 - 6: 20.3% MACE over next 6 weeks - Admit for Clinical Observation Score 7 - 10: 72.7% MACE over next 6 weeks - Early Invasive Strategies Course & Med Decision Making: Course & Med Decision Making Pertinent Labs and Imaging studies reviewed. (See chart for details) [] Dragon Disclaimer: Dragon Disclaimer: This electronic medical record was generated, in whole or in part, using a voice recognition dictation system. Departure Departure: Impression: Primary Impression: Hypertension Disposition: 01 DC HOME SELF CARE/HOMELESS Condition: STABLE Referrals: AISHA PORTILLO MD (PCP) Patient Instructions: Hypertension ALEJO EWING MD Mar 13, 2020 10:00
[2020-03-13] MEDS ORDERED: LABETALOL 20 MG/4 ML DISP.SYRIN. IVP ONE (10:30)
[2020-03-13 11:09] LABS: BASO % 1 % (0-3); EOS % 1 % (0-3); HEMATOCRIT 45.3 % (39.0-53.0); HEMOGLOBIN 15.2 g/dL (13.0-17.5); LYMPH # 1.5 x10^3/uL (1.0-4.8); LYMPH % 29 % (24-48); MEAN CORPUSCULAR HEMOGLOBIN 28 pg (25-35); MEAN CORPUSCULAR HGB CONC 34 g/dL (31-37); MEAN CORPUSCULAR VOLUME 84 fL (79-100); MONO # 0.9 x10^3/uL (0.0-1.1); MONO % 17 % (0-9); NEUT # 2.7 x10^3uL (1.8-7.7); NEUT % 53 % (31-73); PLATELET COUNT 190 x10^3/uL (140-400); RED BLOOD COUNT 5.37 x10^6/uL (4.30-5.70); RED CELL DISTRIBUTION WIDTH 14.4 % (11.5-14.5); WHITE BLOOD COUNT 5.1 x10^3/uL (4.0-11.0)
[2020-03-13 11:20] LABS: CALCIUM 8.9 mg/dL (8.5-10.1); CREATININE 1.6 mg/dL (0.7-1.3); GFR 49.2; POTASSIUM 4.3 mmol/L (3.5-5.1)
[2020-03-13 11:45] VITALS: BP 138/92
== END 2020-03-13 11:58 | disposition home or self-care (01) ==
LOC: ER 09:36
DX: I10 Essential (primary) hypertension (principal); G43.909 Migraine, unspecified, not intractable, without status migrainosus
CPT/HCPCS: 36415; 80048; 85025; 96374; 99283; J3490

== ENCOUNTER 2020-03-16 18:11 | Emergency (ER) | payer SELFPAY ==
[~2020-03-16] VITALS: Ht 180.3 cm; Wt 92.5 kg
[2020-03-16] MEDS ORDERED: IV NORMAL SALINE 1,000ML 1,000 ML IV ONE (18:45)
[2020-03-16] MEDS ORDERED: IBUPROFEN 600 MG TABLET. PO ONE (18:45)
--- NOTE | 2020-03-16 18:45 | PHYS DOC ---
Past History Past Medical History: Hypertension, Renal Disease Past Surgical History: No Surgical History Alcohol Use: None Drug Use: None General Adult HPI: HPI: Patient is a 34-year-old male who presents to the emergency room with dizziness, cough, weakness, shortness of breath and fever. Patient states that he was diagnosed with Covid on . Patient's states he has been running a fever and his last temperature was 101. Patient reports taking some Tylenol with little relief. Patient reports symptoms are exacerbated with trying to talk and also with ambulation. Patient reports history of high blood pressure. Review of Systems: Review of Systems: Constitutional: Reports fever and chills Eyes: Denies change in visual acuity HENT: Denies nasal congestion or sore throat Respiratory: Reports cough and shortness of breath Cardiovascular: Denies chest pain or edema GI: Denies abdominal pain, nausea, vomiting, bloody stools or diarrhea : Denies dysuria Musculoskeletal: Denies back pain or joint pain Integument: Denies rash Neurologic: Denies headache, focal weakness or sensory changes Endocrine: Denies polyuria or polydipsia Lymphatic: Denies swollen glands Psychiatric: Denies depression or anxiety Allergies: Allergies: Allergies Coded Allergies Type Severity Reaction Last Updated Verified No Known Drug Allergies 01/11/14 No Physical Exam: PE: Constitutional: Well developed, well nourished, no acute distress, non-toxic appearance. [] HENT: Normocephalic, atraumatic, bilateral external ears normal, oropharynx moist, no oral exudates, nose normal. [] Eyes: PERRLA, EOMI, conjunctiva normal, no discharge. [] Neck: Normal range of motion, no tenderness, supple, no stridor. [] Cardiovascular:Heart rate regular rhythm, no murmur [] Lungs & Thorax: Bilateral breath sounds clear to auscultation [] Abdomen: Bowel sounds normal, soft, no tenderness, no masses, no pulsatile masses. [] Skin: Warm, dry, no erythema, no rash. [] Back: No tenderness, no CVA tenderness. [] Extremities: No tenderness, no cyanosis, no clubbing, ROM intact, no edema. [] Neurologic: Alert and oriented X 3, normal motor function, ports dizziness, no focal deficits noted. [] Psychologic: Affect normal, judgement normal, mood normal. [] EKG: EKG: HR 97 BPM, Sinus Rhythm[] Radiology/Procedures: Radiology/Procedures: []Exam: Chest one view INDICATION: Cough, Covid positive TECHNIQUE: Frontal view of the chest Comparisons: 05/11/2017 FINDINGS: The cardiomediastinal silhouette and pulmonary vessels are within normal limits. Hazy airspace disease lung bases bilaterally. No pleural effusion. IMPRESSION: Hazy bibasilar airspace disease favored represent developing infectious process. Electronically signed by: Toya Benson MD (03/16/2020 6:51 PM) [id number] Heart Score: Risk Factors: Risk Factors: DM, Current or recent (<one month) smoker, HTN, HLP, family history of CAD, obesity. Risk Scores: Score 0 - 3: 2.5% MACE over next 6 weeks - Discharge Home Score 4 - 6: 20.3% MACE over next 6 weeks - Admit for Clinical Observation Score 7 - 10: 72.7% MACE over next 6 weeks - Early Invasive Strategies Course & Med Decision Making: Course & Med Decision Making Pertinent Labs and Imaging studies reviewed. (See chart for details) [] Patient is a 34-year-old male who presents to the emergency room with dizziness, cough, weakness, shortness of breath and fever. Patient states that he was diagnosed with Covid on . Patient's states he has been running a fever and his last temperature was 101. Patient reports taking some Tylenol with little relief. Patient reports symptoms are exacerbated with trying to talk and also with ambulation. Patient reports history of high blood pressure. Patient's blood pressure was slightly elevated on arrival. Patient states "I have a history of high blood pressure usually runs high". Patient's oxygen level is 97% on room air. Patient states his shortness of breath is exacerbated by trying to speak and also with ambulation. Patient denies known exposure. Will order chest x-ray and labs. Patient has a fever of 100.5. Patient reports taking Tylenol this afternoon, will order Motrin and fluids. CXR showed Hazy bibasilar airspace disease favored represent developing infectious process. Levofloxacin ordered. One dose given in the ED. Cough medicine ordered for at home. Patient's blood pressure was slightly elevated 160/ 100s. Asymptomatic. Patient aware he needs to follow-up with his primary care to manage pressure medications. "I have been having issues with my pressure being elevated lately". "I plan on seeing my PCP soon". 1.Covid 2.Pneumonia 3.HTN Dragon Disclaimer: [place] Disclaimer: This electronic medical record was generated, in whole or in part, using a voice recognition dictation system. Departure Departure: Impression: Primary Impression: COVID-19 virus infection Additional Impression: Pneumonia Qualified Codes: J18.9 - Pneumonia, unspecified organism Disposition: 01 DC HOME SELF CARE/HOMELESS Condition: STABLE Referrals: AISHA PORTILLO MD (PCP) Patient Instructions: Pneumonia, Adult Additional Instructions: Emergency room today for fever, cough, shortness of breath. Your chest x-ray showed developing infection. I have prescribed you an antibiotic to take at home along with cough medicine. Please follow-up with your primary care physician regarding your blood pressure medications. Continue to take ibuprofen and Tylenol at home for fever. EMERGENCY DEPARTMENT GENERAL DISCHARGE INSTRUCTIONS Thank you for coming to [facility] (ED) today and trusting us with you care. We trust that you had a positivie experience in our Emergency Department. If you wish to speak to the department management, you may call the director at [phone]. YOUR FOLLOW UP INSTRUCTIONS ARE FOLLOWS: 1. Do you have a private Doctor? If you do not have a private doctor, please ask for a resource list of physicians or clinics that may be able to assist you with follow up care. 2. The Emergency Physician has interpreted your x-rays. The X-Ray specialist will also review them. If there is a change in the findings, you will be notified in 48 hours when at all possible. 3. A lab test or culture has been done, your results will be reviewed and you will be notified if you need a change in treatment. ADDITIONAL INSTRUCTIONS AND INFORMATION: 1. Your care today has been supervised by a physician who is specially trained in emergency care. Many problems require more than one evaluation for a complete diagnosis and treatment. We recommend that you schedule your follow up appointment as recommended to ensure complete treatment of you illness or injury. If you are unable to obtain follow up care and continue to have a problem, or if your condition worsens, we recommend that you return to the ED. 2. We are not able to safely determine your condition over the phone nor are we able to give sound medical advice over the phone. For these safety reasons, if you call for medical advice we will ask you to come to the ED for further evaluation. 3. If you have any questions regarding these discharge instructions please call the ED at [phone]. SAFETY INFORMATION: In the interest of safety, wellness, and injury prevention; we encourage you to wear your sealbelt, if you smoke; quite smoking, and we encourage family to use a protective helmet for bicycling and other sporting events that present an increased risk for head injury. IF YOUR SYMPTOMS WORSEN OR NEW SYMPTOMS DEVELOP, OR YOU HAVE CONCERNS ABOUT YOUR CONDITION; OR IF YOUR CONDITION WORSENS WHILE YOU ARE WAITING FOR YOUR FOLLOW UP APPOINTMENT; EITHER CONTACT YOUR PRIMARY CARE DOCTOR, THE PHYSICIAN WHOSE NAME AND NUMBER YOU WERE GIVEN, OR RETURN TO THE ED IMMEDIATELY. Scripts Guaifenesin/Codeine Phosphate (Codeine-Guaifen 10-100 mg/5 ml) 120 Ml Liquid 10 ML PO PRN Q4HRS PRN for cough and congestion MDD 60 Milliliter(s) for 4 Days, #240 ML 0 Refills Prov: ERIKA DAVIS APRN 03/16/20 Levofloxacin (LEVOFLOXACIN) 750 Mg Tablet 750 MG PO DAILY for pneumonia for 4 Days, #4 TAB Prov: ERIKA DAVIS APRN 03/16/20 ERIKA DAVIS APRN Mar 16, 2020 18:45
--- NOTE | 2020-03-16 18:53 | RAD ---
Exam: Chest one view INDICATION: Cough, Covid positive TECHNIQUE: Frontal view of the chest Comparisons: 05/11/2017 FINDINGS: The cardiomediastinal silhouette and pulmonary vessels are within normal limits. Hazy airspace disease lung bases bilaterally. No pleural effusion. IMPRESSION: Hazy bibasilar airspace disease favored represent developing infectious process. Electronically signed by: Toya Benson MD (03/16/2020 6:51 PM) [id number]
[2020-03-16 19:46] LABS: BASO % 0 % (0-3); EOS % 0 % (0-3); HEMATOCRIT 44.9 % (39.0-53.0); HEMOGLOBIN 14.8 g/dL (13.0-17.5); LYMPH # 1.4 x10^3/uL (1.0-4.8); LYMPH % 26 % (24-48); MEAN CORPUSCULAR HEMOGLOBIN 28 pg (25-35); MEAN CORPUSCULAR HGB CONC 33 g/dL (31-37); MEAN CORPUSCULAR VOLUME 84 fL (79-100); MONO # 0.4 x10^3/uL (0.0-1.1); MONO % 8 % (0-9); NEUT # 3.5 x10^3uL (1.8-7.7); NEUT % 65 % (31-73); PLATELET COUNT 160 x10^3/uL (140-400); RED BLOOD COUNT 5.37 x10^6/uL (4.30-5.70); RED CELL DISTRIBUTION WIDTH 14.2 % (11.5-14.5); WHITE BLOOD COUNT 5.4 x10^3/uL (4.0-11.0)
[2020-03-16 19:59] LABS: CALCIUM 8.4 mg/dL (8.5-10.1); CREATININE 1.9 mg/dL (0.7-1.3); GFR 40.3; POTASSIUM 3.8 mmol/L (3.5-5.1)
[2020-03-16 20:09] LABS: ALBUMIN 3.6 g/dL (3.4-5.0); ALBUMIN/GLOBULIN RATIO 0.9 (1.0-1.7); C REACTIVE PROTEIN 13.3 mg/L (0-3.3); TOTAL BILIRUBIN 0.4 mg/dL (0.2-1.0); TOTAL PROTEIN 7.7 g/dL (6.4-8.2)
[2020-03-16] MEDS ORDERED: LEVO750T5 PO (20:23)
[2020-03-16] MEDS ORDERED: levoFLOXacin 500 MG TABLET PO ONE (20:30)
[2020-03-16] MEDS ORDERED: GUAI120L35 PO (20:31)
[2020-03-16] MEDS ORDERED: LABETALOL 20 MG/4 ML DISP.SYRIN. IVP ONE (20:45)
[2020-03-16 20:52] VITALS: BP 159/103
[2020-03-16 21:55] LABS: BACTERIA,URINE 0 /HPF (0-FEW); BILIRUBIN,URINE NEG (NEG); CLARITY,URINE CLEAR; COLOR,URINE YELLOW; GLUCOSE,URINE NEG (NEG); NITRITE,URINE NEG (NEG); RBC,URINE 0 /HPF (0-2); UROBILINOGEN,URINE 0.2 mg/dL (0.2 mg/dL); WBC,URINE 0 /HPF (0-4)
--- NOTE | 2020-03-16 23:22 | EKG ---
[facility] ED [facility] [place] [id number] Test Date: 2020-03-16 Test Time: 19:05:56 Pat Name: MELANIE DAWSON Department: Room: Gender: M Bed Control Specialist: : 1985 Requested By: ERIKA DAVIS Order Number: [id number] Reading MD: Measurements Intervals [place] Rate: 97 P: 35 SC: 160 QRS: 39 QRSD: 108 T: -3 QT: 352 QTc: 451 Interpretive Statements SINUS RHYTHM OTHERWISE NORMAL ECG RI6.02 No previous ECG available for comparison
== END 2020-03-16 21:00 | disposition home or self-care (01) ==
LOC: ER 18:11
DX: U07.1 COVID-19 (principal); J12.82 Pneumonia due to coronavirus disease 2019; I10 Essential (primary) hypertension
CPT/HCPCS: 36415; 71045; 80053; 81001; 82550; 83605; 83615; 84484; 85025; 85379; 86140; 87040; 93005; 96360; 99285; J7030

== ENCOUNTER 2020-03-22 16:18 | Emergency (ER) | payer SELFPAY ==
[~2020-03-22] VITALS: Ht 180.3 cm; Wt 93.2 kg
[~2020-03-22 16:18] MED LIST changes: +GUAI120L35 PO; +LEVO750T5 PO
[2020-03-22] MEDS ORDERED: ONDANSETRON PF 4 MG/2 ML VIAL. IVP ONE (17:30)
[2020-03-22] MEDS ORDERED: IV NORMAL SALINE 1,000ML 1,000 ML IV ONE ×2 (17:30→18:30)
--- NOTE | 2020-03-22 17:42 | RAD ---
INDICATION: Reason: COUFG CONGESTION COVID + / Spl. Instructions: / History: COMPARISON: March 16, 2020 FINDINGS: Single view of chest obtained. Cardiomediastinal silhouette is similar to prior. Patchy opacities are again seen bilaterally and could be infectious in nature given the patient's his tory. Appears slightly increased. IMPRESSION: * Patchy opacities again seen bilaterally and could be infectious in nature. Electronically signed by: Ryan Rivera MD (03/22/2020 5:39 PM) [id number]
[2020-03-22 18:05] LABS: BASO % 0 % (0-3); EOS % 0 % (0-3); HEMATOCRIT 43.4 % (39.0-53.0); HEMOGLOBIN 14.3 g/dL (13.0-17.5); LYMPH % 14 % (24-48); MEAN CORPUSCULAR HEMOGLOBIN 28 pg (25-35); MEAN CORPUSCULAR HGB CONC 33 g/dL (31-37); MEAN CORPUSCULAR VOLUME 84 fL (79-100); MONO # 0.8 x10^3/uL (0.0-1.1); MONO % 11 % (0-9); NEUT # 5.6 x10^3uL (1.8-7.7); NEUT % 75 % (31-73); PLATELET COUNT 217 x10^3/uL (140-400); RED BLOOD COUNT 5.17 x10^6/uL (4.30-5.70); RED CELL DISTRIBUTION WIDTH 14.5 % (11.5-14.5); WHITE BLOOD COUNT 7.4 x10^3/uL (4.0-11.0)
[2020-03-22 18:25] LABS: CREATININE 1.7 mg/dL (0.7-1.3); GFR 45.6; POTASSIUM 4.3 mmol/L (3.5-5.1)
[2020-03-22 18:30] LABS: ALBUMIN 2.9 g/dL (3.4-5.0); ALBUMIN/GLOBULIN RATIO 0.6 (1.0-1.7); TOTAL BILIRUBIN 0.7 mg/dL (0.2-1.0); TOTAL PROTEIN 8.1 g/dL (6.4-8.2)
[2020-03-22 20:12] LABS: BACTERIA,URINE 0 /HPF (0-FEW); BILIRUBIN,URINE NEG (NEG); CLARITY,URINE CLEAR; COLOR,URINE AMBER; GLUCOSE,URINE NEG (NEG); NITRITE,URINE NEG (NEG); RBC,URINE RARE /HPF (0-2); SQUAMOUS EPITHELIAL CELL,UR FEW /LPF; WBC,URINE OCC /HPF (0-4)
[2020-03-22] MEDS ORDERED: ONDA4TAB12 PO (20:24)
[2020-03-22] MEDS ORDERED: AZIT250T6 PO (20:24)
--- NOTE | 2020-03-22 20:26 | PHYS DOC ---
Past History Past Medical History: Hypertension, Renal Disease (ANDREA WARREN APRN) Past Surgical History: No Surgical History (ANDREA WARREN APRN) Alcohol Use: None Drug Use: None (ANDREA WARREN APRN) Adult General Chief Complaint Chief Complaint: NAUSEA/VOMITING/DIARRHEA HPI HPI Patient is a 35-year-old male presents emergency department complaining of ongoing COVID-19 symptoms to include nausea vomiting and diarrhea, and cough. Patient denies shortness of breath, denies chest pains, denies nasal congestion. Patient states he has had intermittent nausea and vomiting since he was diagnosed with the COVID-19 virus on 03/13/2020. Patient states that he took his antibiotics that were prescribed to him on his last visit and have completed them. Patient states that he thinks he needs some IV fluids and something else to help with his nausea. Patient denies any other physical complaints or physical concerns. (ANDREA WARREN APRN) Review of Systems Review of Systems 14 body systems of review of systems have been reviewed. See HPI for pertinent positives and negative responses, otherwise all other systems are negative, nonpertinent or noncontributory. (ANDREA WARREN APRN) Current Medications Current Medications Current Medications Medications (Trade) Dose Ordered Sig/Dung Start Time Stop Time Status Last Admin Dose Admin Ondansetron HCl (Zofran) 4 mg 1X ONCE 03/22/20 17:30 03/22/20 17:31 DC 03/22/20 17:36 4 MG Sodium Chloride 1,000 ml @ 1,000 mls/hr 1X ONCE 03/22/20 18:30 03/22/20 19:29 DC (ANDREA WARREN APRN) Allergies Allergies Allergies Coded Allergies Type Severity Reaction Last Updated Verified No Known Drug Allergies 03/22/20 No (ANDREA WARREN APRN) Physical Exam Physical Exam Constitutional: Well developed, well nourished, no acute distress, non-toxic appearance. HENT: Normocephalic, atraumatic, bilateral external ears normal, oropharynx moist, no oral exudates, nose normal. Eyes: PERRLA, EOMI, conjunctiva normal, no discharge. Neck: Normal range of motion, no tenderness, supple, no stridor. Cardiovascular:Heart rate regular rhythm, no murmur Lungs & Thorax: Bilateral breath sounds clear to auscultation Abdomen: Bowel sounds normal, soft, no tenderness, no masses, no pulsatile masses. Skin: Warm, dry, no erythema, no rash. Back: No tenderness, no CVA tenderness. Extremities: No tenderness, no cyanosis, no clubbing, ROM intact, no edema. Neurologic: Alert and oriented X 3, normal motor function, normal sensory function, no focal deficits noted. Psychologic: Affect normal, judgement normal, mood normal. (ANDREA WARERN APRN) Current Patient Data Vital Signs Vital Signs Date Time Temp Pulse Resp B/P (MAP) Pulse Ox O2 Delivery O2 Flow Rate FiO2 03/22/20 16:28 99.9 104 24 178/114 (135) 95 Room Air Lab Results Laboratory Tests Test 03/22/20 17:20 03/22/20 19:15 White Blood Count 7.4 x10^3/uL Red Blood Count 5.17 x10^6/uL Hemoglobin 14.3 g/dL Hematocrit 43.4 % Mean Corpuscular Volume 84 fL Mean Corpuscular Hemoglobin 28 pg Mean Corpuscular Hemoglobin Concent 33 g/dL Red Cell Distribution Width 14.5 % Platelet Count 217 x10^3/uL Neutrophils (%) (Auto) 75 % Lymphocytes (%) (Auto) 14 % Monocytes (%) (Auto) 11 % Eosinophils (%) (Auto) 0 % Basophils (%) (Auto) 0 % Neutrophils # (Auto) 5.6 x10^3uL Lymphocytes # (Auto) 1.0 x10^3/uL Monocytes # (Auto) 0.8 x10^3/uL Eosinophils # (Auto) 0.0 x10^3/uL Basophils # (Auto) 0.0 x10^3/uL Sodium Level 136 mmol/L Potassium Level 4.3 mmol/L Chloride Level 100 mmol/L Carbon Dioxide Level 19 mmol/L Anion Gap 17 Blood Urea Nitrogen 16 mg/dL Creatinine 1.7 mg/dL Estimated GFR (Cockcroft-Gault) 45.6 BUN/Creatinine Ratio 9 Glucose Level 110 mg/dL Calcium Level 9.0 mg/dL Total Bilirubin 0.7 mg/dL Aspartate Amino Transf (AST/SGOT) 34 U/L Alanine Aminotransferase (ALT/SGPT) 22 U/L Alkaline Phosphatase 68 U/L Total Protein 8.1 g/dL Albumin 2.9 g/dL Albumin/Globulin Ratio 0.6 Urine Collection Type Unknown Urine Color Elizabeth Urine Clarity Clear Urine pH 5.5 Urine Specific [place] 1.015 Urine Protein 100 mg/dl Urine Glucose (UA) Neg mg/dL Urine Ketones (Stick) 80 mg/dL Urine Blood Neg Urine Nitrite Neg Urine Bilirubin Neg Urine Urobilinogen Dipstick 1.0 mg/dL Urine Leukocyte Esterase Neg Urine RBC Rare /HPF Urine WBC Occ /HPF Urine Squamous Epithelial Cells Few /LPF Urine Bacteria 0 /HPF Current Medications Medications (Trade) Dose Ordered Sig/Dung Route PRN Reason Start Time Stop Time Status Last Admin Dose Admin Ondansetron HCl (Zofran) 4 mg 1X ONCE IVP 03/22/20 17:30 03/22/20 17:31 DC 03/22/20 17:36 4 MG Sodium Chloride 1,000 ml @ 1,000 mls/hr 1X ONCE IV 03/22/20 17:30 03/22/20 18:29 DC 03/22/20 17:37 1,000 MLS/HR Sodium Chloride 1,000 ml @ 1,000 mls/hr 1X ONCE IV 03/22/20 18:30 03/22/20 19:29 DC Laboratory Tests Test 03/22/20 17:20 White Blood Count 7.4 x10^3/uL (4.0-11.0) Red Blood Count 5.17 x10^6/uL (4.30-5.70) Hemoglobin 14.3 g/dL (13.0-17.5) Hematocrit 43.4 % (39.0-53.0) Mean Corpuscular Volume 84 fL (79-100) Mean Corpuscular Hemoglobin 28 pg (25-35) Mean Corpuscular Hemoglobin Concent 33 g/dL (31-37) Red Cell Distribution Width 14.5 % (11.5-14.5) Platelet Count 217 x10^3/uL (140-400) Neutrophils (%) (Auto) 75 % (31-73) H Lymphocytes (%) (Auto) 14 % (24-48) L Monocytes (%) (Auto) 11 % (0-9) H Eosinophils (%) (Auto) 0 % (0-3) Basophils (%) (Auto) 0 % (0-3) Neutrophils # (Auto) 5.6 x10^3uL (1.8-7.7) Lymphocytes # (Auto) 1.0 x10^3/uL (1.0-4.8) Monocytes # (Auto) 0.8 x10^3/uL (0.0-1.1) Eosinophils # (Auto) 0.0 x10^3/uL (0.0-0.7) Basophils # (Auto) 0.0 x10^3/uL (0.0-0.2) Sodium Level 136 mmol/L (136-145) Potassium Level 4.3 mmol/L (3.5-5.1) Chloride Level 100 mmol/L (98-107) Carbon Dioxide Level 19 mmol/L (21-32) L Anion Gap 17 (6-14) H Blood Urea Nitrogen 16 mg/dL (8-26) Creatinine 1.7 mg/dL (0.7-1.3) H Estimated GFR (Cockcroft-Gault) 45.6 BUN/Creatinine Ratio 9 (6-20) Glucose Level 110 mg/dL (70-99) H Calcium Level 9.0 mg/dL (8.5-10.1) Total Bilirubin 0.7 mg/dL (0.2-1.0) Aspartate Amino Transferase (AST) 34 U/L (15-37) Alanine Aminotransferase (ALT) 22 U/L (16-63) Alkaline Phosphatase 68 U/L (46-116) Total Protein 8.1 g/dL (6.4-8.2) Albumin 2.9 g/dL (3.4-5.0) L Albumin/Globulin Ratio 0.6 (1.0-1.7) L (ANDREA WARREN APRN) EKG EKG [] (ANDREA WARREN APRN) Radiology/Procedures Radiology/Procedures PATIENT: MELANIE DAWSONACCOUNT: [id number] : 1985 LOCATION: ER AGE: 35 SEX: M EXAM STATUS: REG ER ORD. PHYSICIAN: ANDREA WARREN APRN REASON: COUFG CONGESTION COVID + PROCEDURE: CHEST AP ONLY INDICATION: Reason: COUFG CONGESTION COVID + / Spl. Instructions: / History: COMPARISON: March 16, 2020 FINDINGS: Single view of chest obtained. Cardiomediastinal silhouette is similar to prior. Patchy opacities are again seen bilaterally and could be infectious in nature given the patient's history. Appears slightly increased. IMPRESSION: * Patchy opacities again seen bilaterally and could be infectious in nature. Electronically signed by: Jeff Magaña MD (03/22/2020 5:39 PM) [id number] DICTATED AND SIGNED BY: JEFF MAGAÑA MD DATE: 03/22/205 CC: ANDREA WARREN APRN; AISHA PORTILLO MD ~MTH0 0 (ANDREA WARREN APRN) Heart Score Risk Factors: Risk Factors: DM, Current or recent (<one month) smoker, HTN, HLP, family history of CAD, obesity. Risk Scores: Risk Factors: DM, Current or recent (<one month) smoker, HTN, HLP, family history of CAD, obesity. (ANDREA WARREN APRN) Course & Med Decision Making Course & Med Decision Making Pertinent Labs and Imaging studies reviewed. (See chart for details) 35-year-old male, vital signs reviewed, complains of ongoing COVID-19 virus signs and symptoms. Patient physical exam unremarkable, patient was nontoxic in appearance, will treat complaint symptoms and repeat chest x-ray with labs to compare from previous visit 6 days ago. After 2 L normal saline, 4 mg Zofran, patient states he feels much better and has not had any vomiting or diarrhea episodes during his ER stay. Patient states he feels he can go home now. Patient's creatinine is improving down to 1.7 from 1.9 on previous visit, patient continues to exhibit normal white blood cell count, he is not anemic. He is not hypoxic. The patient's urine is not infected. However chest x-ray was read similar to previous checks x-ray from 6 days ago concerning for COVID- 19 virus pneumonia type changes. Patient was given a Levaquin regimen from visit 6 days ago which she has now finished. Will give patient prescription for azithromycin/Z-[place], with 1 refill, also prescription for ODT Zofran for home treatment of nausea. Patient gave verbal understanding of discharge home instructions, antibiotic use, follow-up with primary care physician Dr. Dale this week, return to ER precautions have concerns, patient discharged home without incident. (ANDREA WARREN APRN) Dragon Disclaimer Dragon Disclaimer This electronic medical record was generated, in whole or in part, using a voice recognition dictation system. (ANDREA WARREN APRN) Departure Departure: Impression: Primary Impression: COVID-19 virus infection Additional Impressions: Counseled about COVID-19 virus infection Educated about COVID-19 virus infection Pneumonia due to COVID-19 virus Nausea and vomiting Disposition: 01 DC HOME SELF CARE/HOMELESS Condition: IMPROVED Referrals: AISHA PORTILLO MD (PCP) Additional Instructions: Please states antibiotic prescriptions as directed, I have given you a refill for your antibiotic if symptoms continue past 6 more days, I have given you prescription for nausea, please follow-up with Dr. Dale this week for reexamination. Please return the emergency department for worsening symptoms or other concerns. EMERGENCY DEPARTMENT GENERAL DISCHARGE INSTRUCTIONS Thank you for coming to [facility] (ED) today and trusting us with you care. We trust that you had a positivie experience in our Emergency Department. If you wish to speak to the department management, you may call the director at [phone]. YOUR FOLLOW UP INSTRUCTIONS ARE FOLLOWS: 1. Do you have a private Doctor? If you do not have a private doctor, please ask for a resource list of physicians or clinics that may be able to assist you with follow up care. 2. The Emergency Physician has interpreted your x-rays. The X-Ray specialist will also review them. If there is a change in the findings, you will be notified in 48 hours when at all possible. 3. A lab test or culture has been done, your results will be reviewed and you will be notified if you need a change in treatment. ADDITIONAL INSTRUCTIONS AND INFORMATION: 1. Your care today has been supervised by a physician who is specially trained in emergency care. Many problems require more than one evaluation for a complete diagnosis and treatment. We recommend that you schedule your follow up appointment as recommended to ensure complete treatment of you illness or injury. If you are unable to obtain follow up care and continue to have a problem, or if your condition worsens, we recommend that you return to the ED. 2. We are not able to safely determine your condition over the phone nor are we able to give sound medical advice over the phone. For these safety reasons, if you call for medical advice we will ask you to come to the ED for further evaluation. 3. If you have any questions regarding these discharge instructions please call the ED at [phone]. SAFETY INFORMATION: In the interest of safety, wellness, and injury prevention; we encourage you to wear your sealbelt, if you smoke; quite smoking, and we encourage family to use a protective helmet for bicycling and other sporting events that present an increased risk for head injury. IF YOUR SYMPTOMS WORSEN OR NEW SYMPTOMS DEVELOP, OR YOU HAVE CONCERNS ABOUT YOUR CONDITION; OR IF YOUR CONDITION WORSENS WHILE YOU ARE WAITING FOR YOUR FOLLOW UP APPOINTMENT; EITHER CONTACT YOUR PRIMARY CARE DOCTOR, THE PHYSICIAN WHOSE NAME AND NUMBER YOU WERE GIVEN, OR RETURN TO THE ED IMMEDIATELY. You have been tested for or diagnosed with COVID-19. It is an infection caused by a new type of coronavirus. COVID-19 will cause cold-like or mild flu symptoms in most. It can cause more severe symptoms like problems breathing in some. There is no treatment for COVID-19. The body will clear the infection over time. Self-care will help to ease discomfort. Steps to Take: Self-Care Rest as needed. Healthy habits may help you feel better. Steps include: Choose healthy foods including fruits and vegetables. Drink water throughout the day. Get plenty of sleep each night. If you smoke, try to quit. It may ease breathing. Avoid alcohol. Keep Others Healthy The virus can spread to others. Droplets are released every time you sneeze or cough. The droplets can get into the mouth, nose, or eyes of people near you and lead to infection. To lower the chances of spreading COVID-19 to others: Stay at home until your doctor has said it is safe to leave. If you tested positive this will mean staying isolated until both of the following are true: At least 7 days have passed since the start of illness. You are free of fever for at least 72 hours without the use of medicine. During this time: - Avoid public areas, events, or transportation. Do not return to work or school until your doctor has said it is safe to do so. - Call ahead if you need to go to a medical center. Let them know you may have COVID-19. It will help them guide you where to go. They may also ask you to wear a facemask when you come to the office. - If you call for emergency medical services, let them know you may have COVID- 19. While at home: - Try to avoid close contact with others. Stay about 6 feet away. - If possible, spend most of your time in a separate room from others. - Use a face mask if you will be in close contact with others such as sharing a room or vehicle. - Have someone wipe down common surfaces in the home. Use household health data administrator every day on areas like doorknobs, counters, or sinks. - Cough or sneeze into a tissue. Throw the tissue away right after use. If a ti ssue is not available, cough or sneeze into your elbow. - Wash your hands often. Wash them after sneezing or coughing. Use soap and water and wash for at least 20 seconds. Alcohol based hand silver cleaner can be used if soap and water is not available. - Do not prepare food for others. Avoid sharing personal items like forks, spoons, or toothbrushes. - Avoid close contact with pets while you are sick. There is no evidence of the virus passing to pets. This is a safety step until more is known about this virus. Isolation can be frustrating. Social interaction can help. Keep in touch with friends and family through phone and tech options. You can still interact with others in your home, just keep a safe distance of about 6 feet. Follow-up: Your doctors office will check in with you to see if there are any changes in your health. You may be asked to keep track of symptoms to share with them. They will also let you know when you are clear to be in public again. Problems to Look Out For: Contact your doctor if your recovery is not going as you expect. Get emergency care if you have problems such as: - Trouble breathing - Nonstop chest pain or pressure - Changes in awareness, confusion, or problems waking - Lips or face have bluish color - Worsening of symptoms If you think you have an emergency, call for emergency medical services right away. As [facility] from [facility] Ondansetron (ONDANSETRON ODT) 4 Mg Tab.rapdis 4 MG PO Q6-8HRS PRN for NAUSEA/VOMITING, #16 TAB 0 Refills Prov: ANDREA WARREN CONSTRUCTION SUPERVISOR 03/22/20 Azithromycin (AZITHROMYCIN TABLET) 250 Mg Tablet 1 PKG PO UD for COVID-19 PNEUMONIA for 5 Days, #6 TAB 1 Refill 2 the first day followed by 1 for days 2-5 Prov: ANDREA WARREN APRN 03/22/20 Attending Co-Sign Attending Co-Sign The patient was seen and interviewed as well as examined at the bedside. The chart was reviewed. The case was discussed. Agree with the plan of care. (TEAGAN CHUNG MD) Problem Qualifiers Additional Impressions: Nausea and vomiting Vomiting type: unspecified Vomiting Intractability: non-intractable Qualified Codes: R11.2 - Nausea with vomiting, unspecified ANDREA WARREN APRN Mar 22, 2020 20:26 TEAGAN CHUNG MD Mar 23, 2020 01:10
[2020-03-22 20:55] VITALS: BP 181/110
== END 2020-03-22 20:55 | disposition home or self-care (01) ==
LOC: ER 16:18
DX: U07.1 COVID-19 (principal); R11.2 Nausea with vomiting, unspecified; R19.7 Diarrhea, unspecified; R05 Cough; I10 Essential (primary) hypertension
CPT/HCPCS: 36415; 71045; 80053; 81001; 85025; 96361; 96374; 99285; J2405; J7030

== ENCOUNTER 2020-08-23 22:57 | Inpatient (IN) | payer OTHER ==
[~2020-08-23] VITALS: Ht 180.3 cm; Wt 93.2 kg
[~2020-08-23 22:57] MED LIST changes: +AZIT250T6 PO; +ONDA4TAB12 PO
--- NOTE | 2020-08-24 00:16 | PHYS DOC ---
Past History Past Medical History: Hypertension, Renal Disease Past Surgical History: No Surgical History Alcohol Use: None Drug Use: None General Adult EDM: Chief Complaint: COUGH HPI: HPI: "... I ve been coughing now for weeks... I had course of Pencillin.. and now I am on Azithromax... they put me on some steroids too.. . but I am not better..." Patient is a 35 year old male who presents with above hx and cough with no improvement after two course of antibiotics. Pt. report compliance with his meds. Has had travel to [place]. Hx of past reactive airway. Pt. treatments were for pneumonia. Does have hx HTN. Denies hx HIV. Pt. denies any specific ill contacts. Reportedly Covid test have been negative.. Follow s with [facility] Review of Systems: Review of Systems: Constitutional: Denies fever or chills Eyes: Denies change in visual acuity HENT: Denies nasal congestion or sore throat Respiratory: Complaints of chronic cough and shortness of breath Cardiovascular: Denies chest pain or edema GI: Denies abdominal pain, nausea, vomiting, bloody stools or diarrhea : Denies dysuria Musculoskeletal: Denies back pain or joint pain Integument: Denies rash Neurologic: Denies headache, focal weakness or sensory changes Endocrine: Denies polyuria or polydipsia Lymphatic: Denies swollen glands Psychiatric: Denies depression or anxiety Family History: Family History: Non- contributory Current Medications: Current Meds: See Nursiing for home meds. Allergies: Allergies: Allergies Coded Allergies Type Severity Reaction Last Updated Verified No Known Drug Allergies 03/22/20 No Physical Exam: PE: Constitutional: moderated acute distress, non-toxic appearance. [] HENT: Normocephalic, atraumatic, bilateral external ears normal, oropharynx moist, no oral exudates, nose normal. [] Eyes: PERRLA, EOMI, conjunctiva normal, no discharge. [] Neck: Normal range of motion, no tenderness, supple, no stridor. [] Cardiovascular:Heart rate regular rhythm, no murmur [] Lungs & Thorax: Bilateral breath sounds equal apex with few scattered wheezes on auscultation does have scattered crackles throughout posteriorly and bases. Abdomen: Bowel sounds normal, soft, no tenderness, no masses, no pulsatile masses. [] Skin: Warm, dry, no erythema, no rash. [] Back: No tenderness, no CVA tenderness. [] Extremities: No tenderness, no cyanosis, no clubbing, ROM intact, no edema. Cording appreciated. Neurologic: Alert and oriented X 3, normal motor function, normal sensory function, no focal deficits noted. [] Psychologic: Affect anxious judgement normal, mood normal. [] EKG: EKG: My interpretation EKG shows sinus rhythm at 77 bpm. Some nonspecific T wave changes anterior lateral leads. But no findings acute STEMI of contralateral changes. [] Radiology/Procedures: Radiology/Procedures: [[address] [address] IMAGING REPORT Signed PATIENT: BERNABE DAWSONUNT: [id number] : 1985 LOCATION: ER AGE: 35 SEX: M EXAM STATUS: REG ER ORD. PHYSICIAN: TEAGAN CHUNG MD REASON: cough , hx pneumonai PROCEDURE: CHEST PA & LATERAL XR CHEST 2V INDICATION: cough , hx pneumonia . COMPARISON STUDY: None. FINDINGS: Lungs: Normal lung volume. Prominent interstitial markings. Pleura: No pleural effusion or pneumothorax. Heart and Mediastinum: The cardiomediastinal silhouette is normal. The great vessels of the thorax are normal. IMPRESSION: Prominent interstitial markings may reflect interstitial edema. Electronically signed by: Catarino Trent MD (08/24/2020 5:33 AM) [facility] DICTATED AND SIGNED BY: CATARINO TRENT MD DATE: 08/24/20529 CC: AISHA PORTILLO MD; TEAGAN CHUNG MD ~MTH0 0 ][address] [address] IMAGING REPORT Signed PATIENT: BERNABE DAWSONUNT: [id number] : 1985 LOCATION: ER AGE: 35 SEX: M EXAM STATUS: REG ER ORD. PHYSICIAN: TEAGAN CHUNG MD REASON: cough, dyspnea, OMNI 350, 75ml PROCEDURE: CT ANGIOGRAPHY CHEST CTA CHEST INDICATION: Reason: cough, dyspnea Comparison: radiograph 08/16/2020. TECHNIQUE: Following the uneventful administration of intravenous contrast, 75 cc Omnipaque 350, axial CT sections were obtained through the lungs and upper abdomen. Multiplanar reconstructions and MIP images were obtained. [facility] [place] compliance statement: One or more of the following individualized dose reduction techniques were utilized for this examination: 1. Automated exposure control 2. Adjustment of the mA and/or kV according to patient size 3. Use of iterative reconstruction technique FINDINGS: Lungs and Airways: Bilateral ill-defined groundglass opacities and interlobular septal thickening. Bronchial wall thickening. Pleura: Moderate right and small left pleural effusions. Heart and Mediastinum: The visualized thyroid is normal in size and attenuation. No axillary or supraclavicular lymphadenopathy. No mediastinal, hilar or retrocrural lymphadenopathy. Mild cardiomegaly. Ectatic ascending thoracic aorta measures 4.2 cm at the level of the right pulmonary artery. Abdomen: Limited images through the upper abdomen show no abnormality of the visualized organs. Bones and Soft Tissues: The visualized bones and chest wall soft tissues are wi thin normal limits. IMPRESSION: 1. No evidence of pulmonary thromboembolic disease. 2. Cardiomegaly and pulmonary edema. 3. Moderate right and small left pleural effusions. Electronically signed by: Catarino Trent MD (08/24/2020 4:31 AM) [facility] DICTATED AND SIGNED BY: CATARINO TRENT MD DATE: 08/24/20 0429 CC: AISHA PORTILLO MD; TEAGAN CHUNG MD ~MTH0 0 Heart Score: C/O Chest Pain: No HEART Score for Chest Pain: HEART Score for Chest Pain Response (Comments) Value History Moderately Suspicious 1 ECG Nonspecific Repolarizatio 1 Age < 45 0 Risk Factors 1 or 2 Risk Factors 1 Troponin < Normal Limit 0 Total 3 Risk Factors: Risk Factors: DM, Current or recent (<one month) smoker, HTN, HLP, family history of CAD, obesity. Risk Scores: Score 0 - 3: 2.5% MACE over next 6 weeks - Discharge Home Score 4 - 6: 20.3% MACE over next 6 weeks - Admit for Clinical Observation Score 7 - 10: 72.7% MACE over next 6 weeks - Early Invasive Strategies Course & Med Decision Making: Course & Med Decision Making Pertinent Labs and Imaging studies reviewed. (See chart for details) Patient noted to Dr. Portillo on service with a consult to cardiology. Impression: 1. Accelerated HTN 2. CHF 3. Renal Insuf. Creat-2.0 4. Bronchitis [] Dragon Disclaimer: Dragon Disclaimer: This electronic medical record was generated, in whole or in part, using a voice recognition dictation system. Departure Departure: Referrals: AISHA PORTILLO MD (PCP) Kory Disclaimer This chart was dictated in whole or in part using Voice Recognition software in a busy, high-work load, and often noisy Emergency Department environment. It may contain unintended and wholly unrecognized errors or omissions. Dragon Disclaimer This chart was dictated in whole or in part using Voice Recognition software in a busy, high-work load, and often noisy Emergency Department environment. It may contain unintended and wholly unrecognized errors or omissions. TEAGAN CHUNG MD Aug 24, 2020 00:16
[2020-08-24] MEDS ORDERED: IOHEXOL 350 MG/ML 100 ML VIAL. IV ONE (01:45)
[2020-08-24] MEDS ORDERED: IV RINGERS SOLUTION,LACTATED 1,000 ML IV SCH (01:45)
[2020-08-24] MEDS ORDERED: ALBUTEROL SULFATE 8GM INHALER. INH ONE (01:45)
[2020-08-24] MEDS ORDERED: CONTRAST GIVEN. MC PRN (02:00)
[2020-08-24 02:49] LABS: BASO # 0.1 x10^3/uL (0.0-0.2); BASO % 1 % (0-3); EOS # 0.3 x10^3/uL (0.0-0.7); EOS % 5 % (0-3); HEMATOCRIT 40.5 % (39.0-53.0); HEMOGLOBIN 13.6 g/dL (13.0-17.5); LYMPH # 2.2 x10^3/uL (1.0-4.8); LYMPH % 31 % (24-48); MEAN CORPUSCULAR HEMOGLOBIN 29 pg (25-35); MEAN CORPUSCULAR HGB CONC 34 g/dL (31-37); MEAN CORPUSCULAR VOLUME 86 fL (79-100); MONO # 0.5 x10^3/uL (0.0-1.1); MONO % 8 % (0-9); NEUT % 56 % (31-73); PLATELET COUNT 177 x10^3/uL (140-400); RED BLOOD COUNT 4.73 x10^6/uL (4.30-5.70); RED CELL DISTRIBUTION WIDTH 15.6 % (11.5-14.5); WHITE BLOOD COUNT 7.1 x10^3/uL (4.0-11.0)
[2020-08-24 03:01] LABS: ALBUMIN 3.4 g/dL (3.4-5.0); CALCIUM 8.5 mg/dL (8.5-10.1); DIRECT BILIRUBIN 0.1 mg/dL (0.0-0.2); GFR 37.8; POTASSIUM 3.9 mmol/L (3.5-5.1); TOTAL BILIRUBIN 0.8 mg/dL (0.2-1.0); TOTAL PROTEIN 6.1 g/dL (6.4-8.2)
--- NOTE | 2020-08-24 04:34 | RAD ---
CTA CHEST INDICATION: Reason: cough, dyspnea Comparison: radiograph 08/16/2020. TECHNIQUE: Following the uneventful administration of intravenous contrast, 75 cc Omnipaque 350, axia l CT sections were obtained through the lungs and upper abdomen. Multiplanar reconstructions and MIP images were obtained. PQRS compliance statement: One or more of the following individualized dose reduction techniques were utilized for this examinat ion: 1. Automated exposure control 2. Adjustment of the mA and/or kV according to patient size 3. Use of iterative reconstruction technique FINDINGS: Lungs and Airways: Bilateral ill-defined groundglass opacities and interlobular septal thickening. Br onchial wall thickening. Pleura: Moderate right and small left pleural effusions. Heart and Mediastinum: The visualized thyroid is normal in size and attenuation. No axillary or supra clavicular lymphadenopathy. No mediastinal, hilar or retrocrural lymphadenopathy. Mild cardiomegaly. Ectatic ascending thoracic aorta measures 4.2 cm at the level of the right pulmonary artery. Abdomen: Limited images through the upper abdomen show no abnormality of the visualized organs. Bones and Soft Tissues: The visualized bones and chest wall soft tissues are within normal limits. IMPRESSION: 1. No evidence of pulmonary thromboembolic disease. 2. Cardiomegaly and pulmonary edema. 3. Moderate right and small left pleural effusions. Electronically signed by: Jimi Trent MD (08/24/2020 4:31 AM) [facility]
[2020-08-24] MEDS ORDERED: FUROSEMIDE 40 MG/4 ML VIAL IVP ONE (05:00)
[2020-08-24] MEDS ORDERED: ONDANSETRON PF 4 MG/2 ML VIAL. IVP PRN (05:00)
[2020-08-24] MEDS ORDERED: cloNIDine TTS-2 1 PATCH PATCH TD ONE ×2 (05:00)
--- NOTE | 2020-08-24 05:35 | RAD ---
XR CHEST 2V INDICATION: cough , hx pneumonia . COMPARISON STUDY: None. FINDINGS: Lungs: Normal lung volume. Prominent interstitial markings. Pleura: No pleural effusion or pneumothorax. Heart and Mediastinum: The cardiomediastinal silhouette is normal. The great vessels of the thorax ar e normal. IMPRESSION: Prominent interstitial markings may reflect interstitial edema. Electronically signed by: Jimi Trent MD (08/24/2020 5:33 AM) [facility]
[2020-08-24] MEDS: AZITHROMYCIN 250 MG TABLET. PO SCH (05:46)
[2020-08-24 06:09] LABS: BILIRUBIN,URINE NEG (NEG); CLARITY,URINE CLEAR; COLOR,URINE YELLOW; GLUCOSE,URINE 100 mg/dL (NEG)
[2020-08-24 06:10] LABS: BACTERIA,URINE 0 /HPF (0-FEW); BARBITURATES NEG (NEG); BENZODIAZEPINES NEG (NEG); CANNABINOIDS NEG (NEG); COCAINE NEG (NEG); METHADONE NEG (NEG); NITRITE,URINE NEG (NEG); OPIATES NEG (NEG); PHENCYCLIDINE NEG (NEG); RBC,URINE 0 /HPF (0-2); SQUAMOUS EPITHELIAL CELL,UR OCC /LPF; UROBILINOGEN,URINE 0.2 mg/dL (0.2 mg/dL); WBC,URINE RARE /HPF (0-4)
[2020-08-24 06:11] LABS: AMPHETAMINE/METHAMPHETAMINE NEG (NEG)
--- NOTE | 2020-08-24 06:38 | NUR ---
[facility] cardio consult paged at this time for a routine consult.
[2020-08-24 07:00] VITALS: BP 172/116
[2020-08-24] MEDS ORDERED: IPRATRPIUM/ALBUTEROL 0.5/2.5MG 3 ML NEBU. NEB SCH (08:00)
--- NOTE | 2020-08-24 08:36 | PDOC2 ---
ANTHONY ESCALERA MARINA 08/24/20 0836: CARDIAC CONSULT DATE OF CONSULT DOS: DATE: 08/24/20 TIME: 08:29 REASON FOR CONSULT Reason for Consult CHF, accelerated HTN REFERRING PHYSICIAN Referring Physician Dr. Fischer SOURCE Source: Chart review, Patient HPI History of Present Illness This is a 35 yo male who presented secondary to progressive cough despite treatment with antibiotics therapy. Patient reports having COVID in February of this year. Does not feel he has fully recovered from that. Has been short of breath the last several months. Has had productive cough. Was treated recently with oral antibiotics, but had no improvement in symptoms. Over the last week or so, has been significantly more short of breath. Has been unable to sleep at night. Is now short of breath at rest while sitting up. Denies any chest pain, palpitations, dizziness, diaphoresis, or nausea/vomiting. PAST MEDICAL HISTORY Cardiovascular: CHF, HTN Pulmonary: No pertinent hx GI: No pertinent hx Heme/Onc: No pertinent hx Renal/: Chronic renal insuff PAST SURGICAL HISTORY Past Surgical History: No pertinent history FAMILY HISTORY Family History: Hypertension SOCIAL HISTORY Smoke: No ALCOHOL: none Drugs: None Lives: with Family CURRENT MEDICATIONS Current Medications Current Medications Lactated Ringer's 1,000 ml @ 100 mls/hr Q10H IV Last administered on 08/24/20at 02:57; Start 08/24/20 at 01:45; Stop 08/24/20 at 11:44 Albuterol Sulfate (Ventolin Hfa Inhaler) 2 puff 1X ONCE INH Last administered on 08/24/20at 03:16; Start 08/24/20 at 01:45; Stop 08/24/20 at 01:46; Status DC Iohexol (Omnipaque 350 Mg/ml) 100 ml 1X ONCE IV Last administered on 08/24/20at 03:58; Start 08/24/20 at 01:45; Stop 08/24/20 at 01:46; Status DC Info (Do NOT chart on this entry -- for MONITORING) 1 each PRN DAILY PRN MC SEE COMMENTS; Start 08/24/20 at 02:00; Stop 08/26/20 at 01:59 Furosemide (Lasix) 40 mg 1X ONCE IVP Last administered on 08/24/20at 05:12; Start 08/24/20 at 05:00; Stop 08/24/20 at 05:01; Status DC Clonidine HCl (Catapres Tts-2) 1 patch 1X ONCE TD Last administered on 08/24/20at 05:11; Start 08/24/20 at 05:00; Stop 08/24/20 at 05:01; Status DC Ondansetron HCl (Zofran) 4 mg PRN Q4HRS PRN IVP NAUSEA/VOMITING; Start 08/24/20 at 05:00; Stop 08/25/20 at 04:59 Albuterol/ Ipratropium (Duoneb) 3 ml RTQID NEB ; Start 08/24/20 at 08:00; Stop 08/25/20 at 07:59 Clonidine HCl (Catapres Tts-2) 1 patch 1X ONCE TD ; Start 08/24/20 at 05:00; Stop 08/24/20 at 05:01; Status UNV Albuterol/ Ipratropium (Duoneb) 3 ml RTQID NEB ; Start 08/25/20 at 08:00 Azithromycin (Zithromax) 250 mg DAILY PO Last administered on 08/24/20at 05:46; Start 08/24/20 at 05:09 Active Scripts Active Ondansetron Odt (Ondansetron) 4 Mg Tab.rapdis 4 Mg PO Q6-8HRS PRN Azithromycin Tablet (Azithromycin) 250 Mg Tablet 1 Pkg PO UD 5 Days 2 the first day followed by 1 for days 2-5 Codeine-Guaifen 10-100 mg/5 ml (Guaifenesin/Codeine Phosphate) 120 Ml Liquid 10 Ml PO PRN Q4HRS PRN MDD 60 Milliliter(s) 4 Days Levofloxacin 750 Mg Tablet 750 Mg PO DAILY 4 Days Reported Hydrochlorothiazide Capsule (Hydrochlorothiazide) 12.5 Mg Capsule 12.5 Mg PO DAILY Procardia Xl (Nifedipine) 30 Mg Tab.er.24 1 Tab PO DAILY Losartan Potassium 100 Mg Tablet 100 Mg PO DAILY Coreg (Carvedilol) 12.5 Mg Tablet 12.5 Mg PO BIDWMEALS Tylenol (Acetaminophen) 325 Mg Tablet 650 Mg PO PRN ALLERGIES Allergies: Coded Allergies: No Known Drug Allergies (Unverified , 03/22/20) ROS Review of Systems 14 point ROS conducted with pertinent positives noted above in HPI PHYSICAL EXAM General: Alert, Oriented X3, Cooperative, No acute distress HEENT: Atraumatic Lungs: Other (crackles, diminished bases) Abdomen: Soft, No tenderness Extremities: No edema, Normal pulses Neuro: Normal speech, Sensation intact Psych/Mental Status: Mental status NL, Mood NL MUSCULOSKELETAL: Osteoarthritic changes both hands VITALS Vital Signs Vital Signs Date Time Temp Pulse Resp B/P (MAP) Pulse Ox O2 Delivery O2 Flow Rate FiO2 08/24/20 06:26 65 18 163/112 (129) 95 Room Air 08/23/20 22:57 98.0 LABS LABS Laboratory Tests Test 08/24/20 02:30 08/24/20 03:31 08/24/20 05:20 08/24/20 05:50 White Blood Count 7.1 x10^3/uL (4.0-11.0) Red Blood Count 4.73 x10^6/uL (4.30-5.70) Hemoglobin 13.6 g/dL (13.0-17.5) Hematocrit 40.5 % (39.0-53.0) Mean Corpuscular Volume 86 fL (79-100) Mean Corpuscular Hemoglobin 29 pg (25-35) Mean Corpuscular Hemoglobin Concent 34 g/dL (31-37) Red Cell Distribution Width 15.6 % (11.5-14.5) Platelet Count 177 x10^3/uL (140-400) Neutrophils (%) (Auto) 56 % (31-73) Lymphocytes (%) (Auto) 31 % (24-48) Monocytes (%) (Auto) 8 % (0-9) Eosinophils (%) (Auto) 5 % (0-3) Basophils (%) (Auto) 1 % (0-3) Neutrophils # (Auto) 4.0 x10^3uL (1.8-7.7) Lymphocytes # (Auto) 2.2 x10^3/uL (1.0-4.8) Monocytes # (Auto) 0.5 x10^3/uL (0.0-1.1) Eosinophils # (Auto) 0.3 x10^3/uL (0.0-0.7) Basophils # (Auto) 0.1 x10^3/uL (0.0-0.2) Sodium Level 145 mmol/L (136-145) Potassium Level 3.9 mmol/L (3.5-5.1) Chloride Level 109 mmol/L (98-107) Carbon Dioxide Level 24 mmol/L (21-32) Anion Gap 12 (6-14) Blood Urea Nitrogen 21 mg/dL (8-26) Creatinine 2.0 mg/dL (0.7-1.3) Estimated GFR (Cockcroft-Gault) 37.8 Glucose Level 101 mg/dL (70-99) Calcium Level 8.5 mg/dL (8.5-10.1) Total Bilirubin 0.8 mg/dL (0.2-1.0) Direct Bilirubin 0.1 mg/dL (0.0-0.2) Aspartate Amino Transf (AST/SGOT) 16 U/L (15-37) Alanine Aminotransferase (ALT/SGPT) 24 U/L (16-63) Alkaline Phosphatase 55 U/L (46-116) Troponin I Quantitative < 0.017 ng/mL (0-0.055) < 0.017 ng/mL (0-0.055) Total Protein 6.1 g/dL (6.4-8.2) Albumin 3.4 g/dL (3.4-5.0) KK-Qij-Y-Type Natriuretic Peptide 1784 pg/mL (0-124) Urine Collection Type Unknown Urine Color Yellow Urine Clarity Clear Urine pH 5.5 Urine Specific Walters 1.015 Urine Protein Neg (NEG-TRACE) Urine Glucose (UA) 100 mg/dL (NEG) Urine Ketones (Stick) Neg mg/dL (NEG) Urine Blood Neg (NEG) Urine Nitrite Neg (NEG) Urine Bilirubin Neg (NEG) Urine Urobilinogen Dipstick 0.2 mg/dL (0.2 mg/dL) Urine Leukocyte Esterase Neg (NEG) Urine RBC 0 /HPF (0-2) Urine WBC Rare /HPF (0-4) Urine Squamous Epithelial Cells Occ /LPF Urine Bacteria 0 /HPF (0-FEW) Urine Opiates Screen Neg (NEG) Urine Methadone Screen Neg (NEG) Urine Barbiturates Neg (NEG) Urine Phencyclidine Screen Neg (NEG) Urine Amphetamine/Methamphetamine Neg (NEG) Urine Benzodiazepines Screen Neg (NEG) Urine Cocaine Screen Neg (NEG) Urine Cannabinoids Screen Neg (NEG) Urine Ethyl Alcohol Neg (NEG) ECHOCARDIOGRAM Echocardiogram <Conclusion> The left ventricular systolic function is mildly decreased. EF 45% There is slight global hypokinesis of the left ventricle. DATE: 10/23/18 1556 ASSESSMENT/PLAN Assessment/Plan 1. Dyspnea with acute on chronic combined diastolic/systolic CHF; Echo 10/15 with LVEF 45% as noted above 2. Accelerated HTN; remains elevated 3. ROSARIO on CKD Recommendations Discontinue IVFs Diuresis with monitoring of renal function Echo with preserved LV systolic function No ACEi/ARB with RI, diuresis Resume Coreg, Nifedipine. Will increase clonidine patch for better BP control Hydralazine IV PRN Outpatient ischemic evaluation Supportive care AREN LECHUGA MD 08/24/20 2241: CARDIAC CONSULT ASSESSMENT/PLAN Assessment/Plan Patient seen and examined. Agree with MARKET DIRECTOR's assessment and plan. Continue diuresis for ac on chr combined systolic and diastolic HF with close monitoring of renal function We will titrate antihypertensives for better BP control Plan outpatient ischemic evaluation Thank you for your consultation ANTHONY ESCALERA APRN Aug 24, 2020 08:36 AREN LECHUGA MD Aug 24, 2020 22:41
[2020-08-24] MEDS ORDERED: hydrALAZINE 20 MG/ML VIAL. IV PRN (09:00)
[2020-08-24] MEDS ORDERED: cloNIDine TTS-2 1 PATCH PATCH TD SCH (09:00)
[2020-08-24] MEDS: IPRATRPIUM/ALBUTEROL 0.5/2.5MG 3 ML NEBU. NEB SCH ×3 (09:07→20:00)
[2020-08-24] MEDS ORDERED: ONDANSETRON ODT 4 MG TAB.RAPDIS PO PRN (09:15)
[2020-08-24] MEDS ORDERED: guaiFENesin/CODEINE 100mg/10mg 5 ML LIQUID PO PRN (09:30)
[2020-08-24] MEDS: CARVEDILOL 12.5 MG TABLET PO SCH ×2 (09:46→17:32)
[2020-08-24] MEDS: ASPIRIN CHEWABLE 81 MG TABLET. PO SCH (09:46)
[2020-08-24] MEDS ORDERED: MORPHINE SULFATE 2 MG/ML DISP.SYRIN. IV PRN (10:00)
--- NOTE | 2020-08-24 10:00 | NUR ---
Patient was admitted from the ED with HTN, SOA, and CHF exacerbation. Patient arrived to the unit via gurney transported by EMS. Patient is alert, oriented, anxious, and cooperative. Patients main language is Hungarian but does speak and understand limited Japanese. Patient is complaining of shortness of air for the last several weeks. Patient is unable to lie flat and reports sleeping in his recliner for the last couple of days due to being unable to breath. Patient does report having been to Dr. Manning's office where he was seen by the COMPUTER AIDED DESIGN OPERATOR who prescribed him antibiotics and steroids but the patient reports that they did not help his breathing. Patient had an ECHO back in 2018/2018 which reported a 45% EF. Patient was unaware of a CHF diagnosis or problem with his heart. Patient reports HTN and kidney insufficiency as only health history. Patient is currently in bed with HOB elevated, side rails up X's 2 with call light in reach. WCTM.
[2020-08-24 11:00] VITALS: BP 170/125
--- NOTE | 2020-08-24 13:01 | RAD ---
EXAM: Mckeon scale and color Doppler renal artery sonogram. HISTORY: Hypertensive urgency. Atherosclerosis. TECHNIQUE: Mckeon scale and color Doppler sonographic imaging of the renal arteries with spectral wavef orm analysis was performed. COMPARISON: None. FINDINGS: The kidneys are normal in size. No solid or cystic renal lesion is seen. There is no hydron ephrosis. The proximal abdominal aorta is upper normal in caliber, measuring 3.0 cm. There are normal peak systolic velocities within the renal arteries and normal renal artery to aorta velocity ratios. IMPRESSION: 1. Unremarkable grayscale evaluation of the kidneys. 2. Doppler findings consistent with less than 60 percent stenosis involving the renal arteries. Electronically signed by: Angelica Eid MD (08/24/2020 12:59 PM) [id number]
[2020-08-24] MEDS: FUROSEMIDE 40 MG/4 ML VIAL IVP SCH (13:26)
[2020-08-24] MEDS: ACETAMINOPHEN 325 MG TABLET PO PRN ×2 (13:43→17:32)
[2020-08-24 15:00] VITALS: BP 117/76
[2020-08-24] MEDS ORDERED: CARVEDILOL 12.5 MG TABLET PO SCH (17:00)
[2020-08-24 19:36] VITALS: BP 142/107
--- NOTE | 2020-08-24 20:51 | HP ---
ADMIT DATE: 08/24/2020 HISTORY OF PRESENT ILLNESS: This is a 35-year-old male with previous history of atrial fibrillation. The patient came in with a cough, no improvement. Two courses of antibiotics. The patient reports compliance with his medications. He has traveled to [place] with a history of passive active-reactive disease. The patient was noted to have some elements of problems with his breathing. Chest x-ray showed pulmonary edema and as a result of this the patient was admitted for his history of heart failure. PAST MEDICAL HISTORY: Significant for cardiomyopathy, congestive heart failure, cardiac symptoms, cardiac disorders, chronic kidney disease stage III, Marco-Cevallos virus 2020. Influenza vaccine. FAMILY HISTORY: Otherwise family history positive for hypertension, Alzheimer's in mother. ALLERGIES: No known drug allergies. MEDICATIONS: Includes azithromycin, levothyroxine, carvedilol, nifedipine, acetaminophen, guaifenesin and so forth. SOCIAL HISTORY: Denies smoking, alcohol or drug use. Full code. REVIEW OF SYSTEMS: Marked orthopnea, dyspnea as well as the like. The patient will go ahead and continued to be monitored carefully. The patient otherwise denies any melena, hematochezia or hematemesis and neurologically intact. Has some chest tightness. PHYSICAL EXAMINATION: GENERAL: Pleasant male, moderate amount of distress. VITAL SIGNS: Blood pressure 170/125, respiratory rate 18, pulse in the 80s, atrial fibrillation. The patient's temperature 98.0. NEUROLOGIC: The patient is otherwise alert and oriented x3. Speech fluent, spontaneous, appropriate. Cranial nerves II-XII grossly intact. HEENT: Head is atraumatic, normocephalic. Eyes: PERRLA without jaundice. The mouth or throat were normal. NECK: Supple, without JVD or carotid bruits. LUNGS: Show some decreased breath sounds in the bases. CARDIOVASCULAR: Regular sinus rhythm. ABDOMEN: Soft, nontender. EXTREMITIES: No clubbing, cyanosis. Trace edema. NEUROLOGIC: The patient alert and oriented x3. LABORATORY DATA: Reviewed. Previous echo showed ejection fraction of 45%. ASSESSMENT AND PLAN: Acute on chronic systolic congestive heart failure, accelerated hypertension, acute kidney injury on chronic kidney disease. Elevated BNP of 1700. TSH was normal. The patient otherwise will continue to be monitored carefully and make further evaluation on him as indicated. Consult Dr. Saha and make further assessment as indicated. PJNigel/KATY/COURTNEY DR: Jennifer TID: [id number]
[2020-08-24 22:16] VITALS: BP 120/88
--- NOTE | 2020-08-25 04:26 | NUR ---
PT RESTING COMFORTABLY IN BED WHEN APPROACHED FOR ASSESSMENT. MEAL TRAY WAS STILL SITTING AT BEDSIDE DURING THIS TIME. THIS NURSE THEN WOKE PT FOR ASSESSMENT. PT WAS THEN ASKED IF HE DID NOT FEEL LIKE EATING DINNER THIS EVENING. PT THEN SAT UP STRAIGHT IN BED AND ATE DINNER. PT HAD NO COMPLAINTS OF PAIN DURING SHIFT ASSESSMENT OR THROUGH OUT THE NIGHT. PT STATED THAT HE FELT VERY TIRED AND JUST WANTED TO REST. PT SLEPT W/O ANY DISTURBANCE ALL NIGHT.
[2020-08-25 04:49] VITALS: BP 132/93
[2020-08-25] MEDS: IPRATRPIUM/ALBUTEROL 0.5/2.5MG 3 ML NEBU. NEB SCH ×2 (05:37→09:24)
[2020-08-25 06:27] LABS: BASO # 0.1 x10^3/uL (0.0-0.2); BASO % 1 % (0-3); EOS # 0.3 x10^3/uL (0.0-0.7); EOS % 5 % (0-3); HEMATOCRIT 42.7 % (39.0-53.0); HEMOGLOBIN 14.2 g/dL (13.0-17.5); LYMPH # 1.6 x10^3/uL (1.0-4.8); LYMPH % 24 % (24-48); MEAN CORPUSCULAR HEMOGLOBIN 29 pg (25-35); MEAN CORPUSCULAR HGB CONC 33 g/dL (31-37); MEAN CORPUSCULAR VOLUME 86 fL (79-100); MONO # 0.5 x10^3/uL (0.0-1.1); MONO % 8 % (0-9); NEUT # 4.2 x10^3uL (1.8-7.7); NEUT % 63 % (31-73); PLATELET COUNT 200 x10^3/uL (140-400); RED BLOOD COUNT 4.98 x10^6/uL (4.30-5.70); RED CELL DISTRIBUTION WIDTH 15.8 % (11.5-14.5); WHITE BLOOD COUNT 6.7 x10^3/uL (4.0-11.0)
[2020-08-25 06:36] LABS: CALCIUM 8.7 mg/dL (8.5-10.1); CREATININE 2.1 mg/dL (0.7-1.3); GFR 35.7; POTASSIUM 3.8 mmol/L (3.5-5.1)
[2020-08-25 08:00] VITALS: BP 130/95
--- NOTE | 2020-08-25 08:03 | PDOC ---
CARDIO Progress Notes Date & Time Date of Service DATE: 08/25/20 TIME: 08:02 Time of Evaluation 08:02 Subjective Notes Breathing improved. Slept through the night. Coughing resolved. Vitals Vitals Vital Signs Date Time Temp Pulse Resp B/P (MAP) Pulse Ox O2 Delivery O2 Flow Rate FiO2 08/25/20 04:49 70 18 132/93 (106) 98 Nasal Cannula 2.0 08/24/20 19:36 97.7 Weight Weight [ ] Input and Output I.O. Intake and Output 08/25/20 07:00 Intake Total 1290 ml Balance 1290 ml Intake Oral 1290 ml # Voids 5 Laboratory Labs Laboratory Tests Test 08/24/20 02:30 08/24/20 03:31 08/24/20 05:20 08/24/20 05:50 White Blood Count 7.1 x10^3/uL (4.0-11.0) Red Blood Count 4.73 x10^6/uL (4.30-5.70) Hemoglobin 13.6 g/dL (13.0-17.5) Hematocrit 40.5 % (39.0-53.0) Mean Corpuscular Volume 86 fL (79-100) Mean Corpuscular Hemoglobin 29 pg (25-35) Mean Corpuscular Hemoglobin Concent 34 g/dL (31-37) Red Cell Distribution Width 15.6 % (11.5-14.5) Platelet Count 177 x10^3/uL (140-400) Neutrophils (%) (Auto) 56 % (31-73) Lymphocytes (%) (Auto) 31 % (24-48) Monocytes (%) (Auto) 8 % (0-9) Eosinophils (%) (Auto) 5 % (0-3) Basophils (%) (Auto) 1 % (0-3) Neutrophils # (Auto) 4.0 x10^3uL (1.8-7.7) Lymphocytes # (Auto) 2.2 x10^3/uL (1.0-4.8) Monocytes # (Auto) 0.5 x10^3/uL (0.0-1.1) Eosinophils # (Auto) 0.3 x10^3/uL (0.0-0.7) Basophils # (Auto) 0.1 x10^3/uL (0.0-0.2) Sodium Level 145 mmol/L (136-145) Potassium Level 3.9 mmol/L (3.5-5.1) Chloride Level 109 mmol/L (98-107) Carbon Dioxide Level 24 mmol/L (21-32) Anion Gap 12 (6-14) Blood Urea Nitrogen 21 mg/dL (8-26) Creatinine 2.0 mg/dL (0.7-1.3) Estimated GFR (Cockcroft-Gault) 37.8 Glucose Level 101 mg/dL (70-99) Calcium Level 8.5 mg/dL (8.5-10.1) Total Bilirubin 0.8 mg/dL (0.2-1.0) Direct Bilirubin 0.1 mg/dL (0.0-0.2) Aspartate Amino Transf (AST/SGOT) 16 U/L (15-37) Alanine Aminotransferase (ALT/SGPT) 24 U/L (16-63) Alkaline Phosphatase 55 U/L (46-116) Troponin I Quantitative < 0.017 ng/mL (0-0.055) < 0.017 ng/mL (0-0.055) Total Protein 6.1 g/dL (6.4-8.2) Albumin 3.4 g/dL (3.4-5.0) Triglycerides Level 145 mg/dL (0-150) Cholesterol Level 198 mg/dL (0-200) LDL Cholesterol, Calculated 123 mg/dL (0-100) VLDL Cholesterol, Calculated 29 mg/dL (0-40) Non-HDL Cholesterol Calculated 152 mg/dL (0-129) HDL Cholesterol 46 mg/dL (40-60) Cholesterol/HDL Ratio 4.0 BO-Cyj-S-Type Natriuretic Peptide 1784 pg/mL (0-124) Urine Collection Type Unknown Urine Color Yellow Urine Clarity Clear Urine pH 5.5 Urine Specific Leslie 1.015 Urine Protein Neg (NEG-TRACE) Urine Glucose (UA) 100 mg/dL (NEG) Urine Ketones (Stick) Neg mg/dL (NEG) Urine Blood Neg (NEG) Urine Nitrite Neg (NEG) Urine Bilirubin Neg (NEG) Urine Urobilinogen Dipstick 0.2 mg/dL (0.2 mg/dL) Urine Leukocyte Esterase Neg (NEG) Urine RBC 0 /HPF (0-2) Urine WBC Rare /HPF (0-4) Urine Squamous Epithelial Cells Occ /LPF Urine Bacteria 0 /HPF (0-FEW) Urine Opiates Screen Neg (NEG) Urine Methadone Screen Neg (NEG) Urine Barbiturates Neg (NEG) Urine Phencyclidine Screen Neg (NEG) Urine Amphetamine/Methamphetamine Neg (NEG) Urine Benzodiazepines Screen Neg (NEG) Urine Cocaine Screen Neg (NEG) Urine Cannabinoids Screen Neg (NEG) Urine Ethyl Alcohol Neg (NEG) Test 08/24/20 08:59 08/25/20 05:38 Magnesium Level 2.0 mg/dL (1.8-2.4) Troponin I Quantitative < 0.017 ng/mL (0-0.055) Thyroid Stimulating Hormone (TSH) 3.000 uIU/mL (0.358-3.740) White Blood Count 6.7 x10^3/uL (4.0-11.0) Red Blood Count 4.98 x10^6/uL (4.30-5.70) Hemoglobin 14.2 g/dL (13.0-17.5) Hematocrit 42.7 % (39.0-53.0) Mean Corpuscular Volume 86 fL (79-100) Mean Corpuscular Hemoglobin 29 pg (25-35) Mean Corpuscular Hemoglobin Concent 33 g/dL (31-37) Red Cell Distribution Width 15.8 % (11.5-14.5) Platelet Count 200 x10^3/uL (140-400) Neutrophils (%) (Auto) 63 % (31-73) Lymphocytes (%) (Auto) 24 % (24-48) Monocytes (%) (Auto) 8 % (0-9) Eosinophils (%) (Auto) 5 % (0-3) Basophils (%) (Auto) 1 % (0-3) Neutrophils # (Auto) 4.2 x10^3uL (1.8-7.7) Lymphocytes # (Auto) 1.6 x10^3/uL (1.0-4.8) Monocytes # (Auto) 0.5 x10^3/uL (0.0-1.1) Eosinophils # (Auto) 0.3 x10^3/uL (0.0-0.7) Basophils # (Auto) 0.1 x10^3/uL (0.0-0.2) Sodium Level 142 mmol/L (136-145) Potassium Level 3.8 mmol/L (3.5-5.1) Chloride Level 106 mmol/L (98-107) Carbon Dioxide Level 25 mmol/L (21-32) Anion Gap 11 (6-14) Blood Urea Nitrogen 26 mg/dL (8-26) Creatinine 2.1 mg/dL (0.7-1.3) Estimated GFR (Cockcroft-Gault) 35.7 Glucose Level 93 mg/dL (70-99) Calcium Level 8.7 mg/dL (8.5-10.1) Microbiology Micro Microbiology 08/24/20 Gram Stain Evaluation - Final, Resulted 08/24/20 Respiratory Culture, Resulted Pending Physical Exams HEENT: Neck Supple W Full Motion Chest: Symmetric Lungs: Other (diminished bases) Heart: RRR Abdomen: Soft N/T Extremities: No Edema Neurology: alert, oriented, follow commands Assessment Assessment 1. Dyspnea with acute on chronic combined diastolic/systolic CHF; Echo 10/15 with LVEF 45% as noted above. improved with IV diuresis 2. Accelerated HTN; now controlled 3. ROSARIO on CKD; Cr stable with diuresis 4. Hyperlipidemia Recommendations Echo today Continue current antiHTN therapy Hydralazine IV PRN Discussed 2Gm Na diet, 2000cc FR, and daily weight monitoring. May need low dose diuretic therapy upon discharge with close outpatient monitoring of renal function Will plan outpatient ischemic evaluation Supportive care Follow up in our office with Dr. Saha as scheduled. ANTHONY ESCALERA APRN Aug 25, 2020 08:03
[2020-08-25] MEDS: CARVEDILOL 12.5 MG TABLET PO SCH ×2 (08:54→17:16)
[2020-08-25] MEDS: ASPIRIN CHEWABLE 81 MG TABLET. PO SCH (08:54)
[2020-08-25] MEDS: AZITHROMYCIN 250 MG TABLET. PO SCH (08:55)
[2020-08-25] MEDS: FUROSEMIDE 40 MG/4 ML VIAL IVP SCH (08:55)
[2020-08-25] MEDS ORDERED: AZITHROMYCIN 250 MG TABLET. PO SCH (09:00)
[2020-08-25] MEDS: NITROGLYCERIN 0.2MG/HR PATCH. TD SCH (09:00)
[2020-08-25 11:00] VITALS: BP 130/92
[2020-08-25] MEDS ORDERED: IPRATRPIUM/ALBUTEROL 0.5/2.5MG 3 ML NEBU. NEB PRN (12:15)
--- NOTE | 2020-08-25 13:57 | CARD ---
MR#: [id number] Date of Study: 08/25/2020 Ordering Physician: ANTHONY ESCALERA, Referring Physician: ANTHONY ESCALERA, Tech: LouRadha Espinosa, [facility] APPROVED REPORT EXAM: Two-dimensional and M-mode echocardiogram with Doppler and color Doppler. Other Information Quality : AverageHR: 65bpm INDICATION Congestive Heart Failure RISK FACTORS Hypertension Hyperlipidemia 2D DIMENSIONS RVDd3.0 (2.9-3.5cm)Left Atrium(2D)3.5 (1.6-4.0cm) IVSd1.3 (0.7-1.1cm)Aortic Root(2D)3.5 (2.0-3.7cm) LVDd6.0 (3.9-5.9cm)LVOT Diameter2.5 (1.8-2.4cm) PWd1.3 (0.7-1.1cm)LVDs4.8 (2.5-4.0cm) FS (%) 18.7 %SV67.2 ml LVEF(%)38.0 (>50%) Aortic Valve AoV Peak Victorino.149.5cm/sAoV VTI28.8cm AO Peak GR.8.9mmHgLVOT Peak Victorino.93.8cm/s LVOT VTI 20.25cmAO Mean GR.5mmHg HARJEET (VMAX)3.79fq5MQC (VTI)3.38cm2 AI P 1/2 [id number] Mitral Valve MV E Lrabeqpy82.2cm/sMV DECEL DGWM001xr MV A Orxkemum78.8cm/sE/A Ratio1.7 Pulmonary Valve PV Peak Tpyckryc09.0cm/sPV Peak Grad.2mmHg Tricuspid Valve TR P. Iryqmxur520la/sRAP [id number] TR Peak Gr.51iaUbJSON11hzHb LEFT VENTRICLE The Left Ventricle is mildly dilated. There is moderate concentric left ventricular hypertrophy. The left ventricular systolic function is mildly impaired. The Ejection Fraction is 40-45%. There is glob al hypokinesis of the left ventricle. Transmitral Doppler flow pattern is Grade II-pseudonormal filli ng dynamics. RIGHT VENTRICLE The right ventricle is normal size. There is normal right ventricular wall thickness. The right ventr icular systolic function is normal. ATRIA The left atrium size is normal. The right atrium size is normal. The interatrial septum is intact wit h no evidence for an atrial septal defect or patent foramen ovale as noted on 2-D or Doppler imaging. AORTIC VALVE The aortic valve is normal in structure and function. Doppler and Color Flow revealed mild aortic reg urgitation. There is no significant aortic valvular stenosis. Calculated aortic valve area is 3.4 cm2 with maximum pressure gradient of 9 mmHg and mean pressure gradient of 5 mmHg. MITRAL VALVE The mitral valve is normal in structure and function. There is no evidence of mitral valve prolapse. There is no mitral valve stenosis. Doppler and Color-flow revealed trace mitral regurgitation. TRICUSPID VALVE The tricuspid valve is normal in structure and function. Doppler and Color Flow revealed trace tricus pid regurgitation with an estimated PAP of 31 mmHg. There is no tricuspid valve stenosis. PULMONIC VALVE The pulmonary valve is normal in structure and function. Doppler and Color Flow revealed trace pulmon ic valvular regurgitation. GREAT VESSELS The aortic root is normal in size. The ascending aorta is normal in size. The IVC is normal in size a nd collapses >50% with inspiration. PERICARDIAL EFFUSION There is no evidence of significant pericardial effusion. Critical Notification Critical Value: No <Conclusion> The left ventricular systolic function is mildly impaired. The Ejection Fraction is 40-45%. Mild aortic regurgitation. Trace mitral regurgitation. Trace tricuspid regurgitation with an estimated PAP of 31 mmHg. There is no evidence of significant pericardial effusion. Signed by : Radu Burgos, Electronically Approved : 08/25/2020 13:56:58
[2020-08-25] MEDS ORDERED: BENZOCAINE/MENTHOL LOZNGE 18'S BOX. PO PRN (16:00)
[2020-08-25 17:00] VITALS: BP 129/65
[2020-08-25 19:15] VITALS: BP 131/88
--- NOTE | 2020-08-25 21:48 | EKG ---
[address] [address] Test Date: 2020-08-24 Test Time: 07:12:10 Pat Name: MELANIE DAWSON Department: Room: [facility] Gender: M Credit Verification Clerk: : [id number] Requested By: TEAGAN CHUNG Order Number: [id number] Reading MD: Measurements Intervals [place] Rate: 77 P: 32 MS: 168 QRS: 84 QRSD: 106 T: 183 QT: 394 QTc: 448 Interpretive Statements SINUS RHYTHM LEFT ATRIAL ABNORMALITY T ABNORMALITY IN ANTEROLATERAL LEADS INFEROLATERAL LEADS ABNORMAL ECG RI6.02 No previous ECG available for comparison
--- NOTE | 2020-08-25 21:52 | EKG ---
[address] [address] Test Date: 2020-08-24 Test Time: 03:31:04 Pat Name: MELANIE DAWSON Department: Room: [facility]01 1 Gender: M Stitcher Special Machine: : 1985 Requested By: TEAGAN CHUNG Order Number: [id number] Reading MD: Bryant Saha MD Measurements Intervals [place] Rate: 77 P: 264 TN: 140 QRS: 80 QRSD: 106 T: 91 QT: 404 QTc: 459 Interpretive Statements SINUS RHYTHM LVH Electronically Signed On 08-26-2020 17:03:06 CDT by Bryant Saha MD
[2020-08-25 22:50] VITALS: BP 125/84
[2020-08-26 05:35] VITALS: BP 110/71
--- NOTE | 2020-08-26 05:55 | NUR ---
Pt awake in bed talking on cell phone at change of shift. Pt A&Ox4, pleasant and cooperative with assessment and cares. Pt stated that he "feels better" today - blood pressure, cough & SOA are much improved. Pt ate HS snack independently. Pt had ECHO done with result of 40-45% EF. Pt slept great during night, remained on room air. Pt hopeful for DC home later today since feeling better. Refused shower this AM.
[2020-08-26] MEDS: ASPIRIN CHEWABLE 81 MG TABLET. PO SCH (08:32)
[2020-08-26] MEDS: AZITHROMYCIN 250 MG TABLET. PO SCH (08:34)
[2020-08-26] MEDS: CARVEDILOL 12.5 MG TABLET PO SCH ×2 (08:34→17:23)
[2020-08-26] MEDS: NITROGLYCERIN 0.2MG/HR PATCH. TD SCH (08:36)
[2020-08-26] MEDS: FUROSEMIDE 40 MG/4 ML VIAL IVP SCH (10:17)
[2020-08-26 11:00] VITALS: BP 122/86
--- NOTE | 2020-08-26 12:12 | PN ---
DATE: 08/25/2020 SUBJECTIVE: The patient is a 35-year-old gentleman, in with congestive heart failure. The patient seems to be doing and breathing better, slept through the night. Coughing has been markedly improved as a result of his diuresis. Dr. Burgos has reviewed the patient along with his nurse practitioner. OBJECTIVE: VITAL SIGNS: Blood pressure 130/60, respirations 18, pulse 76, afebrile, good oxygen saturation. GENERAL: Otherwise, the patient is alert and oriented. LUNGS: Diminished throughout, poor movement of air, somewhat diminished in the bases. CARDIOVASCULAR: Regular sinus rhythm. S1, S2 without murmur, rub, thrill or extra heart sound. ABDOMEN: Soft, nontender. EXTREMITIES: No edema. NEUROLOGIC: Alert and oriented x 3. LABORATORY DATA: The patient's CBC was unremarkable. Chemistries show still chronic renal failure for some reason with a creatinine of 2. His BNP from the other day was 17. Thyroid was normal. IMPRESSION: Acute on top of chronic diastolic and systolic congestive heart failure, ejection fraction 45%. Accelerated hypertension. Acute kidney insufficiency on top of chronic kidney disease, stage 3B. Familial hyperlipidemia. PLAN: Renal artery duplex shows some mild stenosis, less than 60% stenosis involving the renal arteries. The patient will need to follow up with a real estate recruiter for this as well. Sputum specimens showed mixed respiratory jerod. We will continue with present drug regimen, make further evaluation on him as indicated as well as continue to adjust medications as noted. HALI/MARY KAY/DIANA DR: Jennifer TID: [id number]
--- NOTE | 2020-08-26 12:58 | RAD ---
EXAM: CT head without contrast INDICATION: Frequent prolonged headache COMPARISON: None TECHNIQUE: Axial CT imaging through the head without intravenous contrast. One or more of the following individualized dose reduction techniques were utilized for this examinat ion: 1. Automated exposure control 2. Adjustment of the mA and/or kV according to patient size 3. Use of iterative reconstruction technique. FINDINGS: No intracranial hemorrhage, acute infarct, or mass lesion. Nava-white matter differentiation is maint ained. Ventricles and sulci are normal. Skull and scalp are intact. Paranasal sinuses and mastoid air cells are clear. IMPRESSION: No acute intracranial abnormality. Electronically signed by: Yanelis Betancourt MD (08/26/2020 12:55 PM) [id number]
[2020-08-26 15:00] VITALS: BP 119/82
--- NOTE | 2020-08-26 17:15 | PDOC ---
PROVIDER NOTE PROVIDER NOTE PROVIDER NOTE S: No new events overnight. Feels better. Denies any chest pain, dyspnea or orthopnea. O: RRR Lungs clr. No edema. Soft abd No focal neurologic deficits. Labs reviewed. Meds reviewed. Impression: 1. Chronic systolic and diastolic HF 2. CKD 3. HTN 4. Prior covid infection Plan: 1. Continue present meds. 2. Outpt stress testing and f/u. Thanks. Justification of Admission: Justification of Admission: Justification of Admission Dx: N/A EMY WOODRUFF MD Aug 26, 2020 17:15
[2020-08-26 17:23] VITALS: BP 132/94
[2020-08-26] MEDS ORDERED: CLON1PAT2 TD (17:37)
[2020-08-26] MEDS ORDERED: NIFE30TA2 PO (17:37)
[2020-08-26] MEDS ORDERED: FURO-68 PO (17:37)
[2020-08-26] MEDS ORDERED: CARV12.547 PO (17:37)
--- NOTE | 2020-08-26 18:18 | NUR ---
Patient was discharged to home. Discharge instructions were reviewed with the patient with patient verbalizing understanding. Patient left the unit via ambulation accompanied by his friend. Patient left the unit with all of his personal belongings. Patient was transported home by private vehicle.
[2020-08-26] MEDS ORDERED: LACTOBACILLUS RHAMNOSUS GG 1 CAPSULE. PO SCH (21:00)
[2020-08-31] MEDS ORDERED: cloNIDine TTS-2 1 PATCH PATCH TD SCH (09:00)
== END 2020-08-26 17:50 | disposition home or self-care (01) | DRG 291 ==
LOC: ER 22:57 → ICU 08-24 06:19
PROVIDERS: ADMIT Family Medicine; ATTEND Family Medicine
DX: I13.0 Hypertensive heart and chronic kidney disease with heart failure and stage 1 through stage 4 chronic kidney disease, or unspecified chronic kidney disease (principal); I50.43 Acute on chronic combined systolic (congestive) and diastolic (congestive) heart failure; N17.9 Acute kidney failure, unspecified; I42.9 Cardiomyopathy, unspecified; J40 Bronchitis, not specified as acute or chronic; E78.49 Other hyperlipidemia; I48.91 Unspecified atrial fibrillation; N18.32 Chronic kidney disease, stage 3b; Z87.01 Personal history of pneumonia (recurrent); Z86.16 Personal history of COVID-19; Z82.49 Family history of ischemic heart disease and other diseases of the circulatory system; Z82.0 Family history of epilepsy and other diseases of the nervous system
CPT/HCPCS: 36415; 70450; 71046; 71275; 80048; 80061; 80076; 80307; 81001; 83735; 83880; 84443; 84484; 85025; 87070; 87116; 87205; 93005; 93306; 93975; 94640; 96361; 96374; J1940; J2270; J7120; Q9967; 94664; 99285-25

== ENCOUNTER 2021-02-25 12:45 | Inpatient (IN) | payer BC, OTHER ==
[~2021-02-25] VITALS: Ht 180.3 cm; Wt 93.2 kg
[~2021-02-25 12:45] MED LIST changes: +CARV12.547 PO; +CLON1PAT2 TD; +FURO-68 PO
[2021-02-25] MEDS ORDERED: IV NORMAL SALINE 1,000ML 1,000 ML IV ONE (13:15)
[2021-02-25] MEDS ORDERED: LABETALOL 20 MG/4 ML DISP.SYRIN. IVP ONE ×2 (13:15→20:00)
--- NOTE | 2021-02-25 13:34 | RAD ---
EXAM: Chest, single view. HISTORY: Altered mental status. COMPARISON: 08/24/2020 FINDINGS: A frontal view of the chest is obtained. There is no infiltrate, pleural effusion or pneumo thorax. The heart is normal in size. IMPRESSION: No acute pulmonary finding. Electronically signed by: Angelica Eid MD (02/25/2021 1:31 PM) [id number]
[2021-02-25 13:35] LABS: BASO # 0.1 x10^3/uL (0.0-0.2); BASO % 1 % (0-3); EOS # 0.3 x10^3/uL (0.0-0.7); EOS % 4 % (0-3); HEMOGLOBIN 14.7 g/dL (13.0-17.5); LYMPH # 2.3 x10^3/uL (1.0-4.8); LYMPH % 32 % (24-48); MEAN CORPUSCULAR HEMOGLOBIN 29 pg (25-35); MEAN CORPUSCULAR HGB CONC 33 g/dL (31-37); MEAN CORPUSCULAR VOLUME 87 fL (79-100); MONO # 0.5 x10^3/uL (0.0-1.1); MONO % 7 % (0-9); NEUT % 56 % (31-73); PLATELET COUNT 197 x10^3/uL (140-400); RED BLOOD COUNT 5.04 x10^6/uL (4.30-5.70); RED CELL DISTRIBUTION WIDTH 14.3 % (11.5-14.5); WHITE BLOOD COUNT 7.1 x10^3/uL (4.0-11.0)
--- NOTE | 2021-02-25 13:35 | RAD ---
EXAM: Head CT without contrast. HISTORY: Altered mental status. TECHNIQUE: Computed tomographic images of the head were obtained without contrast. *One or more of the following individualized dose reduction techniques were utilized for this examina tion: 1. Automated exposure control. 2. Adjustment of the mA and/or kV according to patient size. 3. Use of iterative reconstruction technique. COMPARISON: 08/26/2020. FINDINGS: There is no acute or subacute extra-axial or intraparenchymal hemorrhage. There is no mass effect or midline shift. There is no hydrocephalus. The wilder-white matter differentiation pattern is intact. The visualized portions of the orbits, paranasal sinuses and mastoid air cells are unremarkable. No s uspicious calvarial lesion is seen. IMPRESSION: No acute intracranial findings. Electronically signed by: Angelica Eid MD (02/25/2021 1:32 PM) [id number]
[2021-02-25 13:47] LABS: CALCIUM 8.8 mg/dL (8.5-10.1); CREATININE 1.9 mg/dL (0.7-1.3); GFR 40.1; POTASSIUM 3.7 mmol/L (3.5-5.1)
[2021-02-25 14:01] LABS: ALBUMIN 4.1 g/dL (3.4-5.0); ALBUMIN/GLOBULIN RATIO 1.1 (1.0-1.7); MAGNESIUM 2.3 mg/dL (1.8-2.4); TOTAL BILIRUBIN 0.4 mg/dL (0.2-1.0); TOTAL PROTEIN 7.9 g/dL (6.4-8.2)
[2021-02-25] MEDS ORDERED: cloNIDine TTS-1 1 PATCH PATCH TD STA (15:26)
--- NOTE | 2021-02-25 16:24 | PHYS DOC ---
Past History Past Medical History: Hypertension, Pneumonia, Renal Disease (JOSEF HANKS Cheri REAL ESTATE LAWYER) Past Surgical History: No Surgical History (JOSEF HANKS Cheri REAL ESTATE LAWYER) Alcohol Use: None Drug Use: None (JOSEF HANKS MARINA) Adult General Chief Complaint Chief Complaint: ALTERED MENTAL STATUS HPI HPI Patient is a 35-year-old male patient with history of hypertension, kidney disease, who presents to the ED today by EMS to be evaluated for altered mental status. Patient states that 11 AM this morning he went for lunch at home which is his normal routine, he states when he returned back to work at 1130 his friends noted he was confused and called 911. Patient states he does not recall being confused. Patient denies any headache, chest pain or shortness of air. States he did not take his BP medicines today. (JOSEF HANKS Cheri REAL ESTATE LAWYER) Review of Systems Review of Systems Constitutional: Denies fever or chills [] Eyes: Denies change in visual acuity, redness, or eye pain [] HENT: Denies nasal congestion or sore throat [] Respiratory: Denies cough or shortness of breath [] Cardiovascular: No additional information not addressed in HPI [] GI: Denies abdominal pain, nausea, vomiting, bloody stools or diarrhea [] : Denies dysuria or hematuria [] Musculoskeletal: Denies back pain or joint pain [] Integument: Denies rash or skin lesions [] Neurologic: Reports altered mental status. Denies headache, focal weakness or sensory changes [] All other systems were reviewed and found to be within normal limits, except as documented in this note. (JOSEF HANKS REAL ESTATE LAWYER) Current Medications Current Medications Current Medications Medications (Trade) Dose Ordered Sig/Dung Start Time Stop Time Status Last Admin Dose Admin Clonidine HCl (Catapres Tts-1) 1 patch 1X STAT 02/25/21 15:26 02/25/21 15:27 DC 02/25/21 15:51 1 PATCH Labetalol HCl (Normodyne) 10 mg 1X ONCE 02/25/21 13:15 02/25/21 13:16 DC 02/25/21 13:49 10 MG Sodium Chloride 1,000 ml @ 1,000 mls/hr 1X ONCE 02/25/21 13:15 02/25/21 14:14 DC 02/25/21 13:49 1,000 MLS/HR (JOSEF HANKS [employer]YER) Allergies Allergies Allergies Coded Allergies Type Severity Reaction Last Updated Verified No Known Drug Allergies 03/22/20 No (JOSEF HANKS [employer]YER) Physical Exam Physical Exam Constitutional: Well developed, well nourished, no acute distress, non-toxic appearance. [] HENT: Normocephalic, atraumatic, bilateral external ears normal, oropharynx moist, no oral exudates, nose normal. [] Eyes: PERRLA, EOMI, conjunctiva normal, no discharge. [] Neck: Normal range of motion, no tenderness, supple, no stridor. [] Cardiovascular:Heart rate regular rhythm, no murmur [] Lungs & Thorax: Bilateral breath sounds clear to auscultation [] Abdomen: Bowel sounds normal, soft, no tenderness, no masses, no pulsatile masses. [] Skin: Warm, dry, no erythema, no rash. [] Back: No tenderness, no CVA tenderness. [] Extremities: No tenderness, no cyanosis, no clubbing, ROM intact, no edema. [] Neurologic: Alert and oriented X 3, normal motor function, normal sensory function, no focal deficits noted. Cranial nerves II through XII Psychologic: Affect normal, judgement normal, mood normal. [] (JOSEF HANKS REAL ESTATE LAWYER) Current Patient Data Vital Signs Vital Signs Date Time Temp Pulse Resp B/P (MAP) Pulse Ox O2 Delivery O2 Flow Rate FiO2 02/25/21 14:05 77 16 217/144 (168) 96 Room Air 02/25/21 12:52 98.2 Lab Results Laboratory Tests Test 02/25/21 13:16 02/25/21 13:50 White Blood Count 7.1 x10^3/uL (4.0-11.0) Red Blood Count 5.04 x10^6/uL (4.30-5.70) Hemoglobin 14.7 g/dL (13.0-17.5) Hematocrit 44.0 % (39.0-53.0) Mean Corpuscular Volume 87 fL (79-100) Mean Corpuscular Hemoglobin 29 pg (25-35) Mean Corpuscular Hemoglobin Concent 33 g/dL (31-37) Red Cell Distribution Width 14.3 % (11.5-14.5) Platelet Count 197 x10^3/uL (140-400) Neutrophils (%) (Auto) 56 % (31-73) Lymphocytes (%) (Auto) 32 % (24-48) Monocytes (%) (Auto) 7 % (0-9) Eosinophils (%) (Auto) 4 % (0-3) H Basophils (%) (Auto) 1 % (0-3) Neutrophils # (Auto) 4.0 x10^3uL (1.8-7.7) Lymphocytes # (Auto) 2.3 x10^3/uL (1.0-4.8) Monocytes # (Auto) 0.5 x10^3/uL (0.0-1.1) Eosinophils # (Auto) 0.3 x10^3/uL (0.0-0.7) Basophils # (Auto) 0.1 x10^3/uL (0.0-0.2) Sodium Level 140 mmol/L (136-145) Potassium Level 3.7 mmol/L (3.5-5.1) Chloride Level 103 mmol/L (98-107) Carbon Dioxide Level 26 mmol/L (21-32) Anion Gap 11 (6-14) Blood Urea Nitrogen 19 mg/dL (8-26) Creatinine 1.9 mg/dL (0.7-1.3) H Estimated GFR (Cockcroft-Gault) 40.1 BUN/Creatinine Ratio 10 (6-20) Glucose Level 135 mg/dL (70-99) H Calcium Level 8.8 mg/dL (8.5-10.1) Magnesium Level 2.3 mg/dL (1.8-2.4) Total Bilirubin 0.4 mg/dL (0.2-1.0) Aspartate Amino Transferase (AST) 20 U/L (15-37) Alanine Aminotransferase (ALT) 30 U/L (16-63) Alkaline Phosphatase 69 U/L (46-116) Creatine Kinase 109 U/L (39-308) Creatine Kinase MB (Mass) 1.0 ng/mL (0.0-3.6) Creatine Kinase MB Relative Index 0.9 % (0-4) Troponin I High Sensitivity 7 ng/L (4-75) DN-Vuv-J-Type Natriuretic Peptide 274 pg/mL (0-124) H Total Protein 7.9 g/dL (6.4-8.2) Albumin 4.1 g/dL (3.4-5.0) Albumin/Globulin Ratio 1.1 (1.0-1.7) Ethyl Alcohol Level < 10 mg/dL (0-10) Prothrombin Time 10.5 SEC (9.4-11.4) Prothrombin Time INR 1.0 (0.9-1.1) Activated Partial Thromboplast Time 23 SEC (23-33) (JOSEF HANKS APRN) EKG EKG 1412 interpreted by Sinus rhythm heart rate 76 inverted T waves on V4, V3, V5, aVF, V8, lead II, no STEMI (JOSEF HANKS Cheri [employer] LAWYER) Radiology/Procedures Radiology/Procedures []PROCEDURE: CT HEAD WO CONTRAST EXAM: Head CT without contrast. HISTORY: Altered mental status. TECHNIQUE: Computed tomographic images of the head were obtained without contrast. *One or more of the following individualized dose reduction techniques were utilized for this examination: 1. Automated exposure control. 2. Adjustment of the mA and/or kV according to patient size. 3. Use of iterative reconstruction technique. COMPARISON: 08/26/2020. FINDINGS: There is no acute or subacute extra-axial or intraparenchymal hemorrhage. There is no mass effect or midline shift. There is no hydrocephalus. The wilder-white matter differentiation pattern is intact. The visualized portions of the orbits, paranasal sinuses and mastoid air cells are unremarkable. No suspicious calvarial lesion is seen. IMPRESSION: No acute intracranial findings. Electronically signed by: Angelica Doe MD (02/25/2021 1:32 PM) [id number] DICTATED AND SIGNED BY: ANGELICA DOE MD DATE: 02/25/21 1331 CC: AISHA PORTILLO MD; JOSEF HANKS APRN ~MTH0 0 PROCEDURE: PORTABLE CHEST 1V EXAM: Chest, single view. HISTORY: Altered mental status. COMPARISON: 08/24/2020 FINDINGS: A frontal view of the chest is obtained. There is no infiltrate, pleural effusion or pneumothorax. The heart is normal in size. IMPRESSION: No acute pulmonary finding. Electronically signed by: Angelica Doe MD (02/25/2021 1:31 PM) [id number] DICTATED AND SIGNED BY: ANGELICA DOE MD DATE: 02/25/21 1331 CC: AISHA PORTILLO MD; JOSEF HANKS APRN ~MTH0 0 (JOSEF HANKS APRN) Heart Score C/O Chest Pain: N/A Risk Factors: Risk Factors: DM, Current or recent (<one month) smoker, HTN, HLP, family history of CAD, obesity. Risk Scores: Risk Factors: DM, Current or recent (<one month) smoker, HTN, HLP, family history of CAD, obesity. (JOSEF HANKS APRN) Course & Med Decision Making Course & Med Decision Making Pertinent Labs and Imaging studies reviewed. (See chart for details) This is a 35-year-old male patient presenting to the ED today to be evaluated for altered mental status. He states he went for lunch at 11:00 returned to work at 1130am which is a normal routine for him, he states when he go to work his workmates reported he was confused and called EMS. He is in the ED alert and oriented x4. CT of the head is negative for any acute findings, chest x-ray is negative. CBC no acute findings, CMP with creatinine of 1.9, BUN is normal. History of chronic kidney disease. Creatinine is around his baseline Vitals on arrival to the ED temperature 98.2, heart rate 95, respirations 16 on room air, blood pressure 222/162, O2 sats 98%. Patient was given labetalol 10mg IV in the ED, no improvement in blood pressure. clonidine patch 0.1 mg applied, no improvement on BP, hydralazine given no irmprovement Spoke with Dr. Dale who accepted patient for admission and can start him on Blood pressure medicine drip. Dr. Calvillo recommended Fentanyl and Nitroglycerin which improved his BP slightly but it went up again. 2015- BP 211/150 HR 80 givein his home medicines for BP 2215 BP 197/129 HR 85 Patient is admitted and Dr. Calvillo will observe him while in the Ed. (JOSEF HANKS APRN) Course & Med Decision Making Did not see or evaluate patient. Did not discuss patient with CSR RETAIL. Agree with CSR RETAIL's work-up and disposition per note. (SALLY CALVILLO MD) Dragon Disclaimer Dragon Disclaimer This electronic medical record was generated, in whole or in part, using a voice recognition dictation system. (JOSEF HANKS REAL ESTATE LAWYER) Departure Departure: Impression: Primary Impression: Altered mental status Additional Impressions: Chronic kidney disease Hypertensive emergency Disposition: ADMITTED INPATIENT Condition: STABLE Referrals: AISHA PORTILLO MD (PCP) Problem Qualifiers Primary Impression: Altered mental status Altered mental status type: unspecified Qualified Codes: R41.82 - Altered mental status, unspecified Additional Impressions: Chronic kidney disease Chronic kidney disease stage: unspecified stage Qualified Codes: N18.9 - Chronic kidney disease, unspecified JOSEF HANKS APRN Feb 25, 2021 16:24 SALLY CALVILLO MD Feb 25, 2021 22:46
[2021-02-25 16:39] LABS: BARBITURATES NEG (NEG); BENZODIAZEPINES NEG (NEG); CANNABINOIDS NEG (NEG); COCAINE NEG (NEG); METHADONE NEG (NEG); OPIATES NEG (NEG); PHENCYCLIDINE NEG (NEG)
[2021-02-25 16:44] LABS: AMPHETAMINE/METHAMPHETAMINE NEG (NEG)
[2021-02-25] MEDS ORDERED: hydrALAZINE 20 MG/ML VIAL. IV ONE (16:45)
[2021-02-25 16:48] LABS: BILIRUBIN,URINE NEG (NEG); CLARITY,URINE CLEAR; COLOR,URINE YELLOW; GLUCOSE,URINE 100 mg/dL (NEG)
[2021-02-25 16:49] LABS: BACTERIA,URINE 0 /HPF (0-FEW); NITRITE,URINE NEG (NEG); UROBILINOGEN,URINE 0.2 mg/dL (0.2 mg/dL); WBC,URINE 0 /HPF (0-4)
[2021-02-25] MEDS ORDERED: dilTIAZem VIAL 125 MG in IV NORMAL SALINE 100ML 100 ML IV PRN (17:32)
[2021-02-25] MEDS ORDERED: ACETAMINOPHEN 325 MG TABLET PO PRN (17:45)
[2021-02-25] MEDS ORDERED: ONDANSETRON PF 4 MG/2 ML VIAL. IVP PRN (17:45)
[2021-02-25] MEDS ORDERED: CARVEDILOL 12.5 MG TABLET PO SCH (18:45)
[2021-02-25] MEDS: NITROGLYCERIN SUBLINGUAL 0.4 MG BOTTLE OF 25. SL PRN ×6 (19:02→19:46)
--- NOTE | 2021-02-25 23:09 | EKG ---
[address] [address] Test Date: 2021-02-25 Test Time: 14:05:35 Pat Name: MELANIE DAWSON Department: Room: ED HOLD HR3 Gender: M Gold Cutter: RUTH : 1985 Requested By: JOSEF HANKS Order Number: [id number] Reading MD: Radu Burgos Measurements Intervals [place] Rate: 76 P: 234 MT: 128 QRS: -11 QRSD: 108 T: -66 QT: 398 QTc: 452 Interpretive Statements SINUS RHYTHM LEFTWARD AXIS ST & T ABNORMALITY, CONSIDER INFERIOR ISCHEMIA OR LEFT VENTRICULAR STRAIN T ABNORMALITY IN ANTERIOR LEADS ABNORMAL ECG Electronically Signed On 02-28-2021 12:10:49 PRODUCTION FLOATER by Radu Burgos
[2021-02-26] MEDS: hydrALAZINE 20 MG/ML VIAL. IV PRN ×2 (03:24→07:27)
[2021-02-26 03:30] VITALS: BP 175/117
[2021-02-26 05:48] VITALS: BP 167/100
[2021-02-26] MEDS: CARVEDILOL 12.5 MG TABLET PO SCH ×2 (08:15→17:21)
[2021-02-26] MEDS ORDERED: FUROSEMIDE 40 MG TABLET PO SCH (09:00)
[2021-02-26] MEDS ORDERED: LABETALOL IV PRN (10:15)
[2021-02-26] MEDS ORDERED: LABETALOL 20 MG/4 ML DISP.SYRIN. IVP ONE (10:15)
[2021-02-26] MEDS ORDERED: NORMAL SALINE IV PRN (10:15)
[2021-02-26] MEDS ORDERED: ESMOLOL 2500MG/250ML PREMIX 250 ML IV PRN (10:30)
--- NOTE | 2021-02-26 16:06 | PDOC2 ---
CONSULT DOS: DATE: 02/26/21 TIME: 15:59 Reason for Consult: Hypertensive emergency. Referring Physician: Dr. Dale Chief Complaint Altered mental status. Source: Chart review, Patient Problem List Problems Medical Problems: (1) Altered mental status Status: Acute (2) Chronic kidney disease Status: Acute (3) Hypertensive emergency Status: Acute History of Present Illness The patient is a 35-year-old male with a history of hypertension and baseline renal disease. He was admitted through the emergency room secondary to altered mental status that occurred yesterday approximately at lunchtime. The patient was confused but denied any headache, chest pain or shortness of breath. In the emergency room his blood pressure is 217/144. CT scan of the head without contrast showed no acute findings. Chest x-ray showed no acute cardiopulmonary findings. An EKG showed a sinus rhythm with diffuse ST-T wave changes. Initial troponin has been normal. BNP of 274. Creatinine of 1.9 and a potassium of 3.7. He initially was started on IV nitro and his pressure improved but has remained elevated. Cardiovascular: HTN Pulmonary: Pneumonia Renal/: Chronic renal insuff Past Surgical History: No pertinent history Family History: Hypertension Smoke: No ALCOHOL: none Current Medications Current Medications Labetalol HCl (Normodyne) 10 mg 1X ONCE IVP Last administered on 02/25/21at 1 3:49; Start 02/25/21 at 13:15; Stop 02/25/21 at 13:16; Status DC Sodium Chloride 1,000 ml @ 1,000 mls/hr 1X ONCE IV Last administered on 02/25/21at 13:49; Start 02/25/21 at 13:15; Stop 02/25/21 at 14:14; Status DC Clonidine HCl (Catapres Tts-1) 1 patch 1X STAT TD Last administered on 02/25/21at 15:51; Start 02/25/21 at 15:26; Stop 02/25/21 at 15:27; Status DC Hydralazine HCl (Apresoline) 10 mg 1X ONCE IV Last administered on 02/25/21at 16:54; Start 02/25/21 at 16:45; Stop 02/25/21 at 16:46; Status DC Diltiazem HCl 125 mg/Sodium Chloride 125 ml @ 5 mls/hr CONT PRN IV SEE COMMENTS; Start 02/25/21 at 17:32; Stop 02/25/21 at 18:04; Status DC Ondansetron HCl (Zofran) 4 mg PRN Q4HRS PRN IVP NAUSEA/VOMITING; Start 02/25/21 at 17:45; Stop 02/26/21 at 17:44 Fentanyl Citrate (Fentanyl 2ml Vial) 50 mcg PRN Q1HR PRN IVP PAIN Last administered on 02/26/21at 14:42; Start 02/25/21 at 17:45; Stop 02/26/21 at 17:44 Acetaminophen (Tylenol) 650 mg PRN Q4HRS PRN PO FEVER > 100.3'F Last administered on 02/26/21at 03:52; Start 02/25/21 at 17:45; Stop 02/26/21 at 17:44 Fentanyl Citrate (Fentanyl 2ml Vial) 100 mcg 1X ONCE IVP Last administered on 02/25/21at 18:12; Start 02/25/21 at 18:15; Stop 02/25/21 at 18:16; Status DC Carvedilol (Coreg) 12.5 mg 1X PO Last administered on 02/25/21at 19:00; Start 02/25/21 at 18:45; Stop 02/26/21 at 09:33; Status DC Nifedipine (Procardia Xl) 30 mg 1X ONCE PO Last administered on 02/25/21at 19:00; Start 02/25/21 at 18:45; Stop 02/25/21 at 18:46; Status DC Nitroglycerin (Nitrostat) 0.4 mg PRN Q5MIN PRN SL INFLAMMATION Last administered on 02/25/21at 19:09; Start 02/25/21 at 19:00; Stop 02/25/21 at 19:35; Status DC Nitroglycerin (Nitrostat) 0.4 mg PRN Q5MIN PRN SL CHEST PAIN Last administered on 02/25/21at 19:46; Start 02/25/21 at 19:15 Labetalol HCl (Normodyne) 20 mg 1X ONCE IVP Last administered on 02/25/21at 20:23; Start 02/25/21 at 20:00; Stop 02/25/21 at 20:05; Status DC Fentanyl Citrate (Fentanyl 2ml Vial) 100 mcg 1X ONCE IVP Last administered on 02/25/21at 21:19; Start 02/25/21 at 20:45; Stop 02/25/21 at 20:55; Status DC Carvedilol (Coreg) 25 mg BIDWMEALS PO Last administered on 02/26/21at 08:15; Start 02/26/21 at 08:00 Clonidine HCl (Catapres Tts-2) 1 patch WEEKLY TD ; Start 03/04/21 at 09:00 Furosemide (Lasix) 40 mg DAILY PO Last administered on 02/26/21at 08:54; Start 02/26/21 at 09:00 Nifedipine (Procardia Xl) 90 mg DAILY PO Last administered on 02/26/21at 08:54; Start 02/26/21 at 09:00 Hydralazine HCl (Apresoline) 20 mg PRN Q4HRS PRN IV Sbp>160 Last administered on 02/26/21at 07:27; Start 02/25/21 at 23:00 Hydralazine HCl (Apresoline) 50 mg TID PO Last administered on 02/26/21at 14:41; Start 02/26/21 at 09:30 Nitroglycerin (Nitro-Dur 0.2mg) 1 patch DAILY TD ; Start 02/27/21 at 09:00 Labetalol HCl (Normodyne) 20 mg 1X ONCE IVP ; Start 02/26/21 at 10:15; Stop 02/26/21 at 10:16; Status DC Labetalol HCl 40 mg/Sodium Chloride 168 ml @ 1 mls/hr CONT PRN IV HTN; Start 02/26/21 at 10:15; Stop 02/26/21 at 10:17; Status DC Esmolol HCl 250 ml @ 27.9 mls/hr CONT PRN IV PER PROTOCOL Last administered on 02/26/21at 10:34; Start 02/26/21 at 10:30 Active Scripts Active Lasix (Furosemide) 40 Mg Tablet 1 Tab PO DAILY 30 Days Carvedilol (Carvedilol) 12.5 Mg Tablet 25 Mg PO BID 90 Days Clonidine Tts-2 (Clonidine) 1 Each Patch.tdwk 1 Patch TD WEEKLY 90 Days Procardia Xl (Nifedipine) 30 Mg Tab.er.24 90 Tab PO DAILY 90 Days Allergies: Coded Allergies: No Known Drug Allergies (Unverified , 03/22/20) General: YES: Fatigue Neurological: YES: Confusion General: mild distress HEENT: Atraumatic Lungs: Clear to auscultation Heart: Regular rate Abdomen: Normal bowel sounds VITALS Vital Signs Date Time Temp Pulse Resp B/P (MAP) Pulse Ox O2 Delivery O2 Flow Rate FiO2 02/26/21 15:10 80 17 141/89 (106) 96 Room Air 02/26/21 03:30 98.6 Labs Laboratory Tests Test 02/25/21 13:16 02/25/21 13:50 02/25/21 15:58 02/26/21 03:50 White Blood Count 7.1 x10^3/uL (4.0-11.0) Red Blood Count 5.04 x10^6/uL (4.30-5.70) Hemoglobin 14.7 g/dL (13.0-17.5) Hematocrit 44.0 % (39.0-53.0) Mean Corpuscular Volume 87 fL (79-100) Mean Corpuscular Hemoglobin 29 pg (25-35) Mean Corpuscular Hemoglobin Concent 33 g/dL (31-37) Red Cell Distribution Width 14.3 % (11.5-14.5) Platelet Count 197 x10^3/uL (140-400) Neutrophils (%) (Auto) 56 % (31-73) Lymphocytes (%) (Auto) 32 % (24-48) Monocytes (%) (Auto) 7 % (0-9) Eosinophils (%) (Auto) 4 % (0-3) Basophils (%) (Auto) 1 % (0-3) Neutrophils # (Auto) 4.0 x10^3uL (1.8-7.7) Lymphocytes # (Auto) 2.3 x10^3/uL (1.0-4.8) Monocytes # (Auto) 0.5 x10^3/uL (0.0-1.1) Eosinophils # (Auto) 0.3 x10^3/uL (0.0-0.7) Basophils # (Auto) 0.1 x10^3/uL (0.0-0.2) Sodium Level 140 mmol/L (136-145) Potassium Level 3.7 mmol/L (3.5-5.1) Chloride Level 103 mmol/L (98-107) Carbon Dioxide Level 26 mmol/L (21-32) Anion Gap 11 (6-14) Blood Urea Nitrogen 19 mg/dL (8-26) Creatinine 1.9 mg/dL (0.7-1.3) Estimated GFR (Cockcroft-Gault) 40.1 BUN/Creatinine Ratio 10 (6-20) Glucose Level 135 mg/dL (70-99) Calcium Level 8.8 mg/dL (8.5-10.1) Magnesium Level 2.3 mg/dL (1.8-2.4) Total Bilirubin 0.4 mg/dL (0.2-1.0) Aspartate Amino Transf (AST/SGOT) 20 U/L (15-37) Alanine Aminotransferase (ALT/SGPT) 30 U/L (16-63) Alkaline Phosphatase 69 U/L (46-116) Creatine Kinase 109 U/L (39-308) Creatine Kinase MB (Mass) 1.0 ng/mL (0.0-3.6) Creatine Kinase MB Relative Index 0.9 % (0-4) Troponin I High Sensitivity 7 ng/L (4-75) ZK-Ajc-[id number]-Type Natriuretic Peptide 274 pg/mL (0-124) Total Protein 7.9 g/dL (6.4-8.2) Albumin 4.1 g/dL (3.4-5.0) Albumin/Globulin Ratio 1.1 (1.0-1.7) Ethyl Alcohol Level < 10 mg/dL (0-10) Prothrombin Time 10.5 SEC (9.4-11.4) Prothromb Time International Ratio 1.0 (0.9-1.1) Activated Partial Thromboplast Time 23 SEC (23-33) Urine Collection Type Clean catch Urine Color Yellow Urine Clarity Clear Urine pH 6.5 Urine Specific [place]vent 1.025 Urine Protein >100 mg/dl (NEG-TRACE) Urine Glucose (UA) 100 mg/dL (NEG) Urine Ketones (Stick) Neg mg/dL (NEG) Urine Blood Small (NEG) Urine Nitrite Neg (NEG) Urine Bilirubin Neg (NEG) Urine Urobilinogen Dipstick 0.2 mg/dL (0.2 mg/dL) Urine Leukocyte Esterase Neg (NEG) Urine RBC 1-2 /HPF (0-2) Urine WBC 0 /HPF (0-4) Urine Bacteria 0 /HPF (0-FEW) Urine Opiates Screen Neg (NEG) Urine Methadone Screen Neg (NEG) Urine Barbiturates Neg (NEG) Urine Phencyclidine Screen Neg (NEG) Urine Amphetamine/Methamphetamine Neg (NEG) Urine Benzodiazepines Screen Neg (NEG) Urine Cocaine Screen Neg (NEG) Urine Cannabinoids Screen Neg (NEG) Urine Ethyl Alcohol Neg (NEG) Coronavirus (COVID-19)(PCR) Not detected (NOT DETECTD) SARS-CoV-2 Antigen (Rapid) Negative (NEGATIVE) Images CT head scan without contrast shows no acute findings. Chest x-ray shows no acute findings. Assessment/Plan 1. Altered mental status. Initial work-up including a CT scan of the head showed no acute findings. He is less confused today and responds appropriately to questions. We will continue to lower his blood pressure as below. 2. Hypertensive emergency. Improved on IV nitroglycerin but still elevated. Baseline medications have been initiated. Will check availability at [facility] for a transfer. Will adjust IV medicines as needed pending transfer. 3. Apparent chronic kidney disease. Morning labs shows a potassium of 3.7 and creatinine 1.9. We will continue to monitor. 4. Abnormal EKG as noted above. Initial troponin is normal. We will continue underlying treatment and monitor. Thank you for allowing us to participate in the care of your patient. SABINO CARABALLO MD Feb 26, 2021 16:05
[2021-02-26 16:07] LABS: BASO % 0 % (0-3); EOS % 0 % (0-3); HEMOGLOBIN 15.1 g/dL (13.0-17.5); LYMPH # 1.3 x10^3/uL (1.0-4.8); LYMPH % 13 % (24-48); MEAN CORPUSCULAR HEMOGLOBIN 29 pg (25-35); MEAN CORPUSCULAR HGB CONC 34 g/dL (31-37); MEAN CORPUSCULAR VOLUME 87 fL (79-100); MONO # 0.4 x10^3/uL (0.0-1.1); MONO % 4 % (0-9); NEUT # 7.9 x10^3uL (1.8-7.7); NEUT % 82 % (31-73); PLATELET COUNT 219 x10^3/uL (140-400); RED BLOOD COUNT 5.19 x10^6/uL (4.30-5.70); RED CELL DISTRIBUTION WIDTH 14.5 % (11.5-14.5); WHITE BLOOD COUNT 9.6 x10^3/uL (4.0-11.0)
[2021-02-26 16:31] LABS: CALCIUM 9.1 mg/dL (8.5-10.1); CREATININE 1.6 mg/dL (0.7-1.3); GFR 48.9; POTASSIUM 4.2 mmol/L (3.5-5.1)
[2021-02-26 19:51] VITALS: BP 144/91
--- NOTE | 2021-02-26 21:00 | HP ---
DATE OF SERVICE: 02/26/2021 ADMIT DATE: 02/25/[address]: Jennifer TID: [id number]
--- NOTE | 2021-02-26 21:22 | HP ---
DATE OF SERVICE: 02/26/2021 ADMIT DATE: 02/25/2021 HISTORY OF PRESENT ILLNESS: A 35-year-old male with a long history of hypertension, apparently was in usual state of health until afternoon when he came back from work, he was markedly confused, disoriented. The patient in turn has a history of hypertension and renal disease. The patient was brought in to the Emergency Room. The patient's blood pressure at that time was 217/144, although at times, it went up as high as 235-240 on the systolic. The patient denied chest pain, shortness of breath. The patient was brought in for hypertensive urgency. Denied any headache. EKG showed sinus rhythm. His troponins were within normal range. His BNP was 274, creatinine of 1.9 and potassium 3.7. The patient was admitted through the ER for this reason obviously for control of this hypertensive urgency. PAST MEDICAL HISTORY: Congestive heart failure, cardiomyopathy, chronic kidney disease stage 3. He had a history of Marco-Cevallos virus in 2020. FAMILY HISTORY: Positive for Alzheimer's disease and hypertension. ALLERGIES: No known allergies. SOCIAL HISTORY: He denies smoking or alcohol. Full code. HOME MEDICATIONS: Include clonidine patch TTS-2 weekly, carvedilol 25 mg b.i.d., nifedipine XL 90 mg, furosemide 40 mg ? whether or not he has been taking it or not. REVIEW OF SYSTEMS: The patient is very sedate and he did not really give much of a history at this time. OBJECTIVE: VITAL SIGNS: Blood pressure as noted with high as on my review around 250/149. HEENT: Head was atraumatic, normocephalic. Eyes: PERRLA without jaundice. No papillary edema noted. Mouth and throat were normal. NECK: Supple. LUNGS: Clear to auscultation. CARDIOVASCULAR: Regular sinus rhythm, S1, S2, without murmur, rub, thrill, or extra heart sound. ABDOMEN: Soft, nontender. EXTREMITIES: No clubbing, cyanosis, nor edema. NEUROLOGIC: Sedate. LABORATORY DATA: White count 7, hemoglobin 14 and hematocrit 44. The patient's sodium and potassium 137 and 4.2, BUN and creatinine 16 and 1.6. The patient's BNP of 274. Troponin 7. Liver enzymes were normal. Albumin normal. EKG, sinus rhythm. Chest x-ray unremarkable. HOSPITAL COURSE: Hypertensive urgency. The patient was restarted on all his home medication as well as giving him additional doses of labetalol as well and at one time had to use hydralazine as well as the labetalol and the patient finally brought his blood pressure down. He was seen by Dr. Braxton, imaging analyst who evaluated the patient and wanted to get him down to [facility], they were short of bed, so he continued to be monitored here carefully and as a result of that brought his blood pressure down. The patient demanded to be discharged home, was forcefully told that he really needed to maintain his blood pressure medications. The patient otherwise continued to be monitored carefully as an outpatient. IMPRESSION: Hypertensive urgency, malignant hypertension, chronic renal disease. PLAN: As above. HALI/LENIN DR: Jennifer TID: [id number]
[2021-02-27] MEDS ORDERED: NORMAL SALINE IV PRN (00:01)
[2021-02-27] MEDS ORDERED: LABETALOL IV PRN (00:01)
[2021-02-27] MEDS ORDERED: NITROGLYCERIN 0.2MG/HR PATCH. TD SCH (09:00)
[2021-03-04] MEDS ORDERED: cloNIDine TTS-2 1 PATCH PATCH TD SCH (09:00)
== END 2021-02-26 20:22 | disposition left against medical advice (07) | DRG 305 ==
LOC: ER 12:45 → ER HOLD 17:32
PROVIDERS: ADMIT Family Medicine; ATTEND Family Medicine
DX: I16.1 Hypertensive emergency (principal); I42.9 Cardiomyopathy, unspecified; I13.0 Hypertensive heart and chronic kidney disease with heart failure and stage 1 through stage 4 chronic kidney disease, or unspecified chronic kidney disease; I50.9 Heart failure, unspecified; N18.30 Chronic kidney disease, stage 3 unspecified; Z82.49 Family history of ischemic heart disease and other diseases of the circulatory system; Z82.0 Family history of epilepsy and other diseases of the nervous system; Z20.822 Contact with and (suspected) exposure to COVID-19; G30.9 Alzheimer's disease, unspecified; F02.80 Dementia in other diseases classified elsewhere, unspecified severity, without behavioral disturbance, psychotic disturbance, mood disturbance, and anxiety; Z53.29 Procedure and treatment not carried out because of patient's decision for other reasons
CPT/HCPCS: 36415; 70450; 71045; 80048; 80053; 80307; 81001; 82553; 83735; 83880; 84443; 84484; 85025; 85610; 85730; 87426; 93005; 96361; 96374; 96375; G0480; J0360; J3010; J3490; U0003; 99285-25; J7030